=== PATIENT | female | born 1990 | race Caucasian/White ===

== ENCOUNTER 2020-12-18 09:16 | Outpatient (REF) | payer OTHER, SELFPAY ==
[2020-12-18 10:00] LABS: MANUAL DIFF FLAG NO
[2020-12-18 10:11] LABS: Basophils Percent Auto 0.4 % (0-2); Eosinophils Absolute Auto 0.1 X10*3/uL (0.0-0.4); Eosinophils Percent Auto 1.9 % (0-4); Hematocrit 42.9 % (37-47); Imm Gran Abs Auto 0.03 X10*3/uL (0.00-0.03); Imm Gran Pct Auto 0.4 % (0.0-0.4); Immature Retic Fraction 5.1 % (3.0-15.9); Lymphocytes Absolute Auto 1.6 X10*3/uL (1.2-4.9); Lymphocytes Percent Auto 22.4 % (20-40); Mean Corpuscular HGB Conc 32.6 g/dl (31.0-35.0); Mean Corpuscular Hemoglobin 28.2 pg (27.0-33.0); Mean Corpuscular Volume 86.3 fL (80-98); Mean Platelet Volume 9.3 fL (9.4-12.3); Monocytes Absolute Auto 0.5 X10*3/uL (0.1-1.2); Monocytes Percent Auto 6.2 % (2-11); Neutrophils Percent Auto 68.7 % (45-73); Platelet Count 317 X10*3/uL (160-400); Red Blood Count 4.97 X10*6/uL (4.20-5.50); Red Cell Distribution Width 13.9 % (11.0-16.0); Retic HGB Equivalent 31.2 pg (30.0-35.0); Reticulocyte Percent 1.4 % (0.5-1.8); White Blood Count 7.3 X10*3/uL (4.8-10.8)
[2020-12-18 10:37] LABS: Estimated Average Glucose 108 mg/dL; Hemoglobin A1c % 5.4 %
[2020-12-18 10:45] LABS: Alanine Aminotransferase 14 U/L (0-31); Albumin Level 4.6 g/dL (3.5-5.0); Alkaline Phosphatase 102 U/L (39-117); Anion Gap 11 (12-20); Aspartate Amino Transferase 15 U/L (5-31); Bilirubin Total 0.6 mg/dL (0.0-1.0); Blood Urea Nitrogen 9 mg/dL (9-16); Calcium 9.4 mg/dL (8.4-10.2); Carbon Dioxide 26 mmol/L (22-29); Chloride 106 mmol/L (96-108); Cholesterol 190 mg/dL; Estimated Glomerular Filt Rate > 60; Glucose Random 84 mg/dL (60-115); HDL Cholesterol 67 mg/dL; Iron 79 mcg/dL (30-160); LDL Cholesterol Calculated 109 mg/dl; Percent Iron Saturation 22 % (15-50); Potassium 4.1 mmol/L (3.3-5.1); Sodium 139 mmol/L (135-145); Total Iron Binding Capacity 361 mcg/dL (228-428); Total Protein 7.9 g/dL (6.5-8.0); Triglycerides 73 mg/dL; Unsaturated Iron Binding 282 ug/dL
[2020-12-18 11:06] LABS: Folate 19.9 ng/mL (> or = 4.0); Vitamin B12 807 pg/mL (200-900)
[2020-12-18 11:15] LABS: Ferritin 44 ng/mL (10-122)
[2020-12-18 11:17] LABS: Free T4 (Free Thyroxine) 0.92 ng/dL (0.71-1.85); Thyroid Stimulating Hormone 1.18 uIU/mL (0.32-4.0); Vitamin D 25-OH Total 27.8 ng/mL (>30)
[2020-12-21 13:50] LABS: TS Negative Control Passed; TS Panel A 1; TS Panel B 0; TS Positive Control Passed; TSpotTB Negative (SeeBelow)
== END 2020-12-18 09:17 | disposition home or self-care (01) ==
LOC: HO.LAB 09:16
PROVIDERS: PCP Internal Medicine; Visit Provider Internal Medicine
DX: E66.9 Obesity, unspecified (principal); E78.00 Pure hypercholesterolemia, unspecified
CPT/HCPCS: 36415; 80053; 80061; 82306; 82607; 82728; 82746; 83036; 83540; 84439; 84443; 85025; 85045; 86481

== ENCOUNTER 2021-04-01 09:13 | Outpatient (REF) | payer OTHER, SELFPAY ==
[2021-04-01 11:45] LABS: Binax Internal Control QC Valid; Binax Now Covid-19 Ag Negative (Negative)
== END 2021-04-01 09:14 | disposition home or self-care (01) ==
LOC: HO.LAB 09:13
PROVIDERS: Visit Provider Internal Medicine
DX: Z20.822 Contact with and (suspected) exposure to COVID-19 (principal)
CPT/HCPCS: 36415; C9803

== ENCOUNTER 2021-08-14 21:13 | Emergency (ER) | payer OTHER, SELFPAY ==
[2021-08-14 22:14] VITALS: BP 140/88; PULSE 108; RESP 18; TEMP 36.4; O2SAT 98; BMI 35.6
[2021-08-14 23:07] LABS: Influenza A PCR POSITIVE (Negative); Influenza B PCR NEGATIVE (Negative); Resp Syncy Virus RNA Qual PCR NEGATIVE (Negative); SARS COV2 PCR INHOUSE NEGATIVE (Negative)
--- NOTE | 2021-08-14 23:48 | ED_ITS ---
HPI - URI/Sore Throat General Chief Complaint: Upper Respiratory Symptoms Stated Complaint: fever,diarrhea, chills Time Seen by Provider: 08/14/21 23:48 Source: patient Mode of arrival: ambulatory Limitations: no limitations History of Present Illness HPI Narrative: Patient comes emergency room complaining 3 days nasal congestion, cough. Fever at home of 101.2. Complaining of chills. Patient's daughter has the same symptoms. No shortness of breath, no chest pain. COVID test is negative at home. Related Data Home Medications Medication Instructions Recorded Confirmed multivitamin 1 tab PO DAILY 12/17/20 12/17/20 Previous Rx's Medication Instructions Recorded oseltamivir 75 mg capsule (Tamiflu) 75 mg PO BID 5 Days #10 cap 08/14/21 Allergies Allergy/AdvReac Type Severity Reaction Status Date / Time No Known Allergies Allergy Verified 08/14/21 22:13 Review of Systems Review of Systems: Constitutional : No Weight loss, No Fever, No Chills, No Night Sweats, No Fatigue, No Malaise ENT/Mouth : No Hearing loss, No Ear Pain, No Nasal Congestion, No Sinus Pain, No Hoarseness, mild sore throat, No Rhinorrhea, No Swallowing Difficulty Eyes: No Eye Pain, No Swelling, No Redness, No Foreign Body, No Discharge, No Vision Changes Cardiovascular : No Chest Pain, No SOB, No Dyspnea on Exertion, No Orthopnea, No Edema, No Palpitations Respiratory : Cough, sore throat Gastrointestinal : No Nausea, No Vomiting, No Diarrhea, No Constipation, No abdominal Pain, No Hematochezia, No Melena Genitourinary : no irregular bleeding, No Dysuria, No Urinary Frequency, No Hematuria, No Urinary Incontinence, No Urgency, No Flank Pain, No Urinary Flow Changes, No Hesitancy Musculoskeletal : No joint pain, No Myalgias, No Joint Swelling Skin : No Skin Lesions, No rash Neuro : No Weakness, No Numbness, No Paresthesias, No Loss of Consciousness, No Dizziness, No Headache Psych : No Anxiety/Panic, No Depression, No SI/HI/AH/VH, No Social Issues, Heme/Lymph: No Bruising, No Bleeding,No Lymphadenopathy Endocrine : No Polyuria, No Polydipsia, No Temperature Intolerance PMFSH Past Medical History Medical History Constipation Generalized anxiety disorder Gestational diabetes Obesity (BMI 30.0-34.9) Vitamin D deficiency Surgical History Bunion of great toe H/O hand surgery H/O tubal ligation [place] teeth removed Family History Family History (Updated 12/17/20 @ 09:50 by Slim Hensley MD) Maternal Grandmother Myocardial infarct Social History Social History (Updated 12/17/20 @ 09:51 by Slim Hensley MD) Housing: House Alcohol intake: never Patient Tobacco Use Status: Never used Tobacco e-Cigarette/Vaping Use: Never Used Second Hand Smoke Exposure: No Advance Directives: No Advance Directives Information Provided: Yes service: No Current occupational status: employed Physical Exam Vital Signs: Vital Signs: Last Vital Signs Temp 97.6 F 08/14/21 22:14 Pulse 108 H 08/14/21 22:14 Resp 18 08/14/21 22:14 BP 140/88 H 08/14/21 22:14 Pulse Ox 98 08/14/21 22:14 BMI result Body Mass Index 35.6 Const: Other: Appearance: Alert. Oriented X3. No acute distress. Well-appearing Eyes: Pupils equal, round and reactive to light. ENT: Pharynx normal. Neck: Normal inspection. Neck supple. No lymph nodes noted. No crepitus CVS: Normal heart rate and rhythm. Pulses normal. Normal S1 and S2 Respiratory: No respiratory distress. Breath sounds normal. No Wheezing. No rales Abdomen: Soft and nontender. No rigidity. No distention. Skin: Skin warm and dry. Normal skin color. Normal skin turgor. Extremities: No lower extremity edema. No Lacerations. No Rash Neuro: Oriented X 3. No motor deficit. No sensory deficit. Moving all extremities. No slurred speech. CN 2 through 12 grossly intact Psych: calm, cooperative, normal affect Course Course Course Narrative: Patient's heart rate in the 90s on physical exam, patient test positive for influenza a as well as her daughter. Patient will be started on Tamiflu MDM - URI/Sore Throat Lab Data Labs: Lab Results 08/14/21 Range/Units 22:19 Influenza Type A (PCR) POSITIVE A (Negative) Influenza Type B (PCR) NEGATIVE (Negative) RSV RNA Qual (PCR) NEGATIVE (Negative) SARS-CoV-2 RNA (RT-PCR) NEGATIVE (Negative) Discharge Plan Discharge Clinical Impression: Influenza A Patient Disposition: Home, Self-Care Instructions: Influenza (ED) Additional Instructions: Please follow-up with your primary care physician tomorrow. If you have any worsening or new symptoms, please return to the emergency room or call 911 Prescriptions: New oseltamivir [Tamiflu] 75 mg capsule 75 mg PO BID 5 Days Qty: 10 0RF No Action multivitamin Tablet 1 tab PO DAILY 0RF
== END 2021-08-15 00:10 | disposition home or self-care (01) ==
PROVIDERS: Emergency Provider Emergency Medicine; PCP Internal Medicine
DX: J10.1 Influenza due to other identified influenza virus with other respiratory manifestations (principal); R50.9 Fever, unspecified; R05.9 Cough, unspecified; Z20.822 Contact with and (suspected) exposure to COVID-19; Z79.899 Other long term (current) drug therapy
CPT/HCPCS: 0241U; 99283

== ENCOUNTER 2022-01-25 03:17 | Emergency (ER) | payer OTHER, SELFPAY ==
[2022-01-25 03:24] VITALS: BP 122/84; PULSE 87; RESP 18; TEMP 36.4; O2SAT 97; BMI 34.5
[2022-01-25 03:48] LABS: Strep A Nucleic Acid Negative (Negative)
[2022-01-25 04:16] LABS: Influenza A PCR NEGATIVE (Negative); Influenza B PCR NEGATIVE (Negative); Resp Syncy Virus RNA Qual PCR NEGATIVE (Negative); SARS COV2 PCR INHOUSE NEGATIVE (Negative)
[2022-01-25 06:10] VITALS: BP 115/78; PULSE 78; RESP 16; TEMP 36.8; O2SAT 99
--- NOTE | 2022-01-25 06:34 | ED.GENADULT ---
HPI - General Adult General Chief complaint: General Medical Stated complaint: sore throat Time Seen by Provider: 01/25/22 06:26 Source: patient Mode of arrival: ambulatory Limitations: no limitations History of Present Illness HPI narrative: Patient comes to the emergency room complaining of sore throat for 4 days. Patient is here chills. No difficulty swallowing, no chest pain or shortness of breath. Related Data Home Medications Medication Instructions Recorded Confirmed multivitamin 1 tab PO DAILY 12/17/20 12/17/20 Previous Rx's Medication Instructions Recorded oseltamivir 75 mg capsule (Tamiflu) 75 mg PO BID 5 days #10 caps 08/14/21 Allergies Allergy/AdvReac Type Severity Reaction Status Date / Time No Known Allergies Allergy Verified 08/14/21 22:13 Review of Systems Review of Systems: Constitutional : No Weight loss, No Fever, No Chills, No Night Sweats, No Fatigue, No Malaise ENT/Mouth : No Hearing loss, No Ear Pain, No Nasal Congestion, No Sinus Pain, No Hoarseness, complaining of sore throat, No Rhinorrhea, No Swallowing Difficulty Eyes: No Eye Pain, No Swelling, No Redness, No Foreign Body, No Discharge, No Vision Changes Cardiovascular : No Chest Pain, No SOB, No Dyspnea on Exertion, No Orthopnea, No Edema, No Palpitations Respiratory : No Cough, No Sputum, No Wheezing, No Smoke Exposure, No Dyspnea Gastrointestinal : No Nausea, No Vomiting, No Diarrhea, No Constipation, No abdominal Pain, No Hematochezia, No Melena Genitourinary : no irregular bleeding, No Dysuria, No Urinary Frequency, No Hematuria, No Urinary Incontinence, No Urgency, No Flank Pain, No Urinary Flow Changes, No Hesitancy Musculoskeletal : No joint pain, No Myalgias, No Joint Swelling Skin : No Skin Lesions, No rash Neuro : No Weakness, No Numbness, No Paresthesias, No Loss of Consciousness, No Dizziness, No Headache Psych : No Anxiety/Panic, No Depression, No SI/HI/AH/VH, No Social Issues, Heme/Lymph: No Bruising, No Bleeding,No Lymphadenopathy Endocrine : No Polyuria, No Polydipsia, No Temperature Intolerance PMFSH Past Medical History Medical History Constipation Generalized anxiety disorder Gestational diabetes Obesity (BMI 30.0-34.9) Vitamin D deficiency Surgical History Bunion of great toe H/O hand surgery H/O tubal ligation [place] teeth removed Family History Family History (Updated 12/17/20 @ 09:50 by Slim Hensley MD) Maternal Grandmother Myocardial infarct Social History Social History (Updated 12/17/20 @ 09:51 by Slim Hensley MD) Housing: House Alcohol intake: never Patient Tobacco Use Status: Never used Tobacco e-Cigarette/Vaping Use: Never Used Second Hand Smoke Exposure: No Advance Directives: No Advance Directives Information Provided: No service: No Current occupational status: employed Physical Exam ED Vital Signs: Vital Signs - 24 hr 01/25/22 03:24 01/25/22 06:10 Temperature 97.5 F 98.2 F Pulse Rate 87 78 Respiratory Rate 18 16 Blood Pressure 122/84 115/78 Pulse Oximetry 97 99 Oxygen Delivery Method Room Air Room Air BMI result Body Mass Index 34.5 Const Other: Appearance: Alert. Oriented X3. No acute distress. Well appearing Eyes: Pupils equal, round and reactive to light. ENT: Pharynx normal. Exit, no vesicles, no abscess is visualized Neck: Normal inspection. Neck supple. No lymph nodes noted. No crepitus CVS: Normal heart rate and rhythm. Pulses normal. Normal S1 and S2 Respiratory: No respiratory distress. Breath sounds normal. No Wheezing. No rales Abdomen: Soft and nontender. No rigidity. No distention. Skin: Skin warm and dry. Normal skin color. Normal skin turgor. Extremities: No lower extremity edema. No Lacerations. No Rash Neuro: Oriented X 3. No motor deficit. No sensory deficit. Moving all extremities. No slurred speech. CN 2 through 12 grossly intact Psych: calm, cooperative, normal affect Course Course Course Narrative: Patient tested negative for COVID and for strep. Patient likely having viral pharyngitis. Patient was given a dose of p.o. Decadron and viscous lidocaine for comfort. Medical Decision Making Lab Data Labs: Lab Results 01/25/22 01/25/22 Range/Units 03:32 03:32 Influenza Type A (PCR) NEGATIVE (Negative) Influenza Type B (PCR) NEGATIVE (Negative) RSV RNA Qual (PCR) NEGATIVE (Negative) SARS-CoV-2 RNA (RT-PCR) NEGATIVE (Negative) S. pyogenes GrpA ASHLEY Negative (Negative) Discharge Plan Discharge Clinical Impression: Acute viral pharyngitis Patient Disposition: Home, Self-Care Instructions: Pharyngitis (ED) Additional Instructions: Please follow-up with your primary care physician tomorrow. If you have any worsening or new symptoms, please return to the emergency room or call 911 Prescriptions: No Action oseltamivir [Tamiflu] 75 mg capsule 75 mg PO BID 5 Days Qty: 10 0RF multivitamin Tablet 1 tab PO DAILY
[2022-01-25] MEDS: Lidocaine HCl Viscous 2 % 15 ML SOLUTION MUCOUS MEM (06:52)
[2022-01-25] MEDS: dexAMETHasone 6 MG TABLET PO (06:52)
== END 2022-01-25 06:58 | disposition home or self-care (01) ==
PROVIDERS: Emergency Provider Emergency Medicine; PCP Internal Medicine
DX: J02.9 Acute pharyngitis, unspecified (principal); Z20.822 Contact with and (suspected) exposure to COVID-19
CPT/HCPCS: 0241U; 87651; 99283; J8540

== ENCOUNTER 2022-04-09 11:14 | Outpatient (REF) | payer OTHER, SELFPAY ==
[2022-04-11 15:49] LABS: TS Negative Control Passed; TS Panel A 0; TS Panel B 0; TS Positive Control Passed; TSpotTB Negative (Negative)
== END 2022-04-09 11:15 | disposition home or self-care (01) ==
LOC: HO.LAB 11:14
PROVIDERS: PCP Internal Medicine; Visit Provider Internal Medicine
DX: Z11.1 Encounter for screening for respiratory tuberculosis (principal)
CPT/HCPCS: 36415; 86481

== ENCOUNTER 2022-10-31 15:11 | Outpatient (AMB) | payer OTHER, SELFPAY ==
[2022-10-31 15:17] VITALS: BP 130/74; PULSE 78; O2SAT 98; BMI 38.0
--- NOTE | 2022-10-31 15:17 | A.OFFPC_ITS ---
Vital Signs 10/31/22 15:17 Height 5 ft 2 in Weight 208 lb BMI 38.0 BP 130/74 Blood Pressure Location Lt brachial Position Sitting Pulse 78 Pulse Source Pulse Oximeter Temp Source Skin Pulse Oximetry (%) 98 Oxygen Delivery Method Room Air Intake Visit Reasons: Health issues Unit Educator Required: No Allergies No Known Allergies Allergy (Verified 10/31/22 15:18) Tobacco use date assessed: 10/31/22 Dental Screening Dental Screen Date: 10/31/22 Did you have a dental visit in the last 12 months?: Yes Did you have a dental problem in the last 6 months where you did not have access to dental care?: No Was dental information given to patient?: Patient has dentist HPI Health issues HPI Details 32-year-old obese female with a history of gestational diabetes coming in for follow-up. Last seen in March 2022 for physical. August rash on the medial bilateral arm area but this is better presently the patient does not have any rash and so discussed about a thinks that can have a problem. Skin reactions like allergy, skin infections,. discussed about hidradenitis. Concern that with her gaining a lot of weight that this may become a complication. Patient has a history of gestational diabetes so discussed length really about trying to lose the weight this patient did increase in weight . Patient does have 3 children young and so had this has kept her really busy. . [facility] Medical History Constipation Generalized anxiety disorder Gestational diabetes Obesity (BMI 30.0-34.9) Vitamin D deficiency Surgical History Bunion of great toe H/O hand surgery H/O tubal ligation [place] teeth removed Family History (Updated 12/17/20 @ 09:50 by Slim Hensley MD) Maternal Grandmother Myocardial infarct Social History (Updated 04/09/22 @ 10:48 by Slim Hensley MD) Housing: House Alcohol intake: never Patient Tobacco Use Status: Never used Tobacco e-Cigarette/Vaping Use: Never Used Second Hand Smoke Exposure: No service: No Current occupational status: employed Cognitive needs: No Hearing needs: No Vision needs: No Questionnaire PHQ-9 Over the last 2 weeks, how often have you been bothered by any of the following problems? 1. Little interest or pleasure in doing things: not at all 2. Feeling down, depressed, or hopeless: not at all 3. Trouble falling or staying asleep, or sleeping too much: not at all 4. Feeling tired or having little energy: not at all 5. Poor appetite or overeating: not at all 6. Feeling bad about yourself - or that you are a failure or have let yourself or your family down: not at all 7. Trouble concentrating on things, such as reading the newspaper or watching television: not at all 8. Moving or speaking so slowly that other people could have noticed. Or the opposite - being so fidgety or restless that you have been moving around a lot more than usual: not at all 9. Thoughts that you would be better off or of hurting yourself in some way: not at all Total score: 0 Source: Developed by Drs. Tuan Vargas, Rosalie Kenyon, Bla Bauer and colleagues, with an educational idalia from [employer]. Thrive Questionnaire Date Thrive assessed: 04/09/22 I am a: Patient What is your living situation today?: I have a steady place to live Within the past 12 months, did the food you bought not last and you didn't have the money to get more?: Never true Within the past 12 months, did you worry whether your food would run out before you got money to buy more?: Never true AUDIT C Alcohol Use Questionnaire (AUDIT-C) 1. How often do you have a drink containing alcohol?: Monthly or less 2. How many drinks containing alcohol do you have on a typical day when you are drinking?: 1 or 2 3. How often do you have six or more drinks on one occasion?: Never Total Score: 1 RUBY-7 AMB Questionnaire RUBY-7 Date RUBY - 7 assessed: 10/31/22 Feeling nervous, anxious, or on edge: 0 = Not at all Not being able to stop or control worryin = Not at all Worrying too much about different things: 0 = Not at all Trouble relaxin = Not at all Being so restless that it is hard to sit still: 0 = Not at all Becoming easily annoyed or irritable: 0 = Not at all Feeling afraid as if something awful might happen: 0 = Not at all Total RUBY-7 score (0-4 normal; 5-9 mild; 10-14 moderate; 15-21 severe): 0 Source: Developed by Drs. Tuan Vargas, Rosalie Kenyon, Bal Bauer and colleagues, with an educational idalia from [employer]. RUBY-7 Assessment Billing RUBY-7 Assessment Tool: RUBY-7 Assessment 09472 Physical exam (Primary Care) Vital Signs: Last Vital Signs Pulse 78 10/31/22 15:17 BP 130/74 10/31/22 15:17 Pulse Ox 98 10/31/22 15:17 Oxygen Delivery Method Room Air 10/31/22 15:17 BMI result Body Mass Index 38.0 Tobacco/Smoking Status: Tobacco use Status Tobacco use date assessed 10/31/22 10/31/22 15:18 Patient Tobacco Use Status Never used Tobacco 10/31/22 15:18 Tobacco use type 12/17/20 10:18 e-Cigarette/Vaping Use Never Used 10/31/22 15:18 PHQ-9: PHQ-9 Score PHQ-9: Total score 0 10/31/22 15:24 Thrive Assessment: Date of Thrive Assessment Date Thrive assessed 04/09/22 10/31/22 15:18 Const General: alert; No acute distress Eyes Conjunctivae: conjunctivae normal Resp Auscultation: clear to auscultation bilaterally Cardio Rate: regular rate Rhythm: regular rhythm GI Inspection: Yes normal to inspection Extrem General: Yes normal to inspection and No edema Assessment and Plan Assessment & Plan (1) Obesity (BMI 30.0-34.9): Code(s): E66.9 - Obesity, unspecified Plan: Diet and exercise. Advised to have time for her health with healthy eating and exercise. (2) History of gestational diabetes: Code(s): Z86.32 - Personal history of gestational diabetes Plan: Decrease the amount of carbohydrate intake, pasta, bread, rice and potatoes are all sugar and that is aside from all the sweet stuff, remember that fruits are good but they are Sweet also. (3) Actinic reaction of skin: Code(s): L56.8 - Other specified acute skin changes due to ultraviolet radiation Plan: Discussed about possibilities of skin reaction as well as hydradenitis suppurativa which can be a complication of weight. Coding Level of Care Code Est Pt Level 4 (88015) Diagnoses Obesity (BMI 30.0-34.9) E66.9 History of gestational diabetes Z86.32 Actinic reaction of skin L56.8 Additional Codes RUBY-7 Assessment Billing - RUBY-7 Assessment Tool: RUBY-7 Assessment 80407 ([id number]) PHQ-9 - 50151 - PHQ-9 Billing: Y ([id number])
== END 2022-10-31 16:06 | disposition home or self-care (01) ==
PROVIDERS: PCP Internal Medicine; Visit Provider Internal Medicine
DX: E66.9 Obesity, unspecified (principal); Z86.32 Personal history of gestational diabetes; L56.8 Other specified acute skin changes due to ultraviolet radiation; Z68.38 Body mass index [BMI] 38.0-38.9, adult
CPT/HCPCS: 99214

== ENCOUNTER 2023-02-11 12:42 | Outpatient (AMB) | payer OTHER, SELFPAY ==
[2023-02-11 12:47] VITALS: BP 122/74; PULSE 84; O2SAT 99; BMI 37.4
--- NOTE | 2023-02-11 12:47 | A.OFFPC_ITS ---
Vital Signs 02/11/23 12:47 Height 5 ft 2 in Weight 204 lb 4 oz BMI 37.4 BP 122/74 Blood Pressure Location Lt brachial Position Sitting Pulse 84 Pulse Source Pulse Oximeter Temp Source Skin Pulse Oximetry (%) 99 Oxygen Delivery Method Room Air Intake Visit Reasons: obesity+ NEEDS FRANCY Bland MD INTERPRET. Director Information Security Required: No Allergies No Known Allergies Allergy (Verified 02/11/23 12:47) Medication List - Last Reconciled 02/11/23 by Slim Hensley MD phentermine 37.5 mg PO DAILY Tobacco use date assessed: 02/11/23 Dental Screening Dental Screen Date: 02/11/23 Did you have a dental visit in the last 12 months?: No Did you have a dental problem in the last 6 months where you did not have access to dental care?: No HPI obesity+ NEEDS FRANCY Bland MD INTERPRET. HPI Details 32-year-old obese female last seen in [facility] 2022 with a history of gestational diabetes coming in for follow-up. doing good and taking care of kids more active' has hard time losing weight and was asking some help. Patient was asking about peptides by injection but discussed with the patient that I would do not have any experience on this. As for PHQ-9 this was done patient is negative for any anxiety and depression. [facility] Medical History (Updated 02/11/23 @ 13:21 by Slim Hensley MD) Gestational diabetes Generalized anxiety disorder Obesity (BMI 30.0-34.9) Constipation Vitamin D deficiency Surgical History H/O tubal ligation [place] teeth removed H/O hand surgery Bunion of great toe Family History (Updated 12/17/20 @ 09:50 by Slim Hensley MD) Maternal Grandmother Myocardial infarct (Updated 04/09/22 @ 10:48 by Slim Hensley MD) Housing: House Alcohol intake: never Patient Tobacco Use Status: Never used Tobacco e-Cigarette/Vaping Use: Never Used Second Hand Smoke Exposure: No service: No Current occupational status: employed Cognitive needs: No Hearing needs: No Vision needs: No Questionnaire PHQ-9 Over the last 2 weeks, how often have you been bothered by any of the following problems? 1. Little interest or pleasure in doing things: not at all 2. Feeling down, depressed, or hopeless: not at all 3. Trouble falling or staying asleep, or sleeping too much: not at all 4. Feeling tired or having little energy: several days 5. Poor appetite or overeating: several days 6. Feeling bad about yourself - or that you are a failure or have let yourself or your family down: not at all 7. Trouble concentrating on things, such as reading the newspaper or watching television: not at all 8. Moving or speaking so slowly that other people could have noticed. Or the opposite - being so fidgety or restless that you have been moving around a lot more than usual: not at all 9. Thoughts that you would be better off or of hurting yourself in some way: not at all Total score: 2 Depression Screening Interpretation: Negative Depression Screening Done: Yes 40184 - PHQ-9 Billing: Yes Source: Developed by Drs. Tuan Vargas, Rosalie Kenyon, Bal Bauer and colleagues, with an educational idalia from [employer]. Thrive Questionnaire Date Thrive assessed: 04/09/22 AUDIT C Alcohol Use Questionnaire (AUDIT-C) 1. How often do you have a drink containing alcohol?: Monthly or less 2. How many drinks containing alcohol do you have on a typical day when you are drinking?: 1 or 2 3. How often do you have six or more drinks on one occasion?: Never Total Score: 1 RUBY-7 AMB Questionnaire RUBY-7 Date RUBY - 7 assessed: 10/31/22 Source: Developed by Drs. Tuan Vargas, Rosalie Kenyon, Bal Bauer and colleagues, with an educational idalia from [employer]. Physical exam (Primary Care) Vital Signs: Last Vital Signs Pulse 84 02/11/23 12:47 BP 122/74 02/11/23 12:47 Pulse Ox 99 02/11/23 12:47 Oxygen Delivery Method Room Air 02/11/23 12:47 BMI result Body Mass Index 37.4 Tobacco/Smoking Status: Tobacco use Status Tobacco use date assessed 02/11/23 02/11/23 12:48 Patient Tobacco Use Status Never used Tobacco 02/11/23 12:48 Tobacco use type 12/17/20 10:18 e-Cigarette/Vaping Use Never Used 02/11/23 12:48 Depression Screening Interpretation: Negative Thrive Assessment: Date of Thrive Assessment Date Thrive assessed 04/09/22 02/11/23 12:48 Const General: alert; No acute distress Eyes Conjunctivae: conjunctivae normal Resp Auscultation: clear to auscultation bilaterally Cardio Rate: regular rate Rhythm: regular rhythm GI Inspection: Yes normal to inspection Extrem General: Yes normal to inspection and No edema Assessment and Plan Assessment & Plan (1) Obesity (BMI 30.0-34.9): Code(s): E66.9 - Obesity, unspecified Plan: Discussion about diet and exercise and starting on medication(limitation of jumped starting weight loss for 3 months only). Discussed that this medication can cause palpitations and blood pressure problem. Advised to monitor will follow-up in 1 month. Medications: New phentermine must administer 30 minutes before or 1-2 hours after breakfast 37.5 mg PO DAILY 30 caps 0RF E66.9 - Obesity, unspecified Coding Level of Care Code Est Pt Level 3 (25992) Diagnoses Obesity (BMI 30.0-34.9) E66.9
== END 2023-02-11 13:49 | disposition home or self-care (01) ==
PROVIDERS: PCP Internal Medicine; Visit Provider Internal Medicine
DX: E66.9 Obesity, unspecified (principal); Z68.37 Body mass index [BMI] 37.0-37.9, adult
CPT/HCPCS: 99213

== ENCOUNTER 2023-04-13 15:06 | Outpatient (AMB) | payer OTHER, SELFPAY ==
--- NOTE | 2023-04-13 15:19 | AM.OFFVISNUR ---
Intake Intake Visit Reasons: TB shot Allergies No Known Allergies Allergy (Verified 02/11/23 12:47) Office Meds tuberculin PPD 5 tub. unit/0.1 mL intradermal injection solution Performing Provider: Slim Hensley MD [facility] Administered by: Leidy Butler RN on 04/13/23 15:19 Dose Route Admin Location Dispensed Lot Number Expiration Date NDC Assistant Research Scientist 0.1 mL intradermal left forearm 0.1 mL [id number] 03/22/26 98682-102-64 [employer] Coding Assessment & Plan Assessment & Plan Orders: Orders AMB PPD Planted Today Z11.1 - Encounter for screening for respiratory tuberculosis
== END 2023-04-13 15:20 | disposition home or self-care (01) ==
PROVIDERS: PCP Internal Medicine; Visit Provider Internal Medicine
DX: Z11.1 Encounter for screening for respiratory tuberculosis (principal)
CPT/HCPCS: 86580

== ENCOUNTER 2023-04-16 09:55 | Outpatient (AMB) | payer OTHER, SELFPAY ==
[2023-04-16 09:58] VITALS: BP 112/70; PULSE 87; O2SAT 100; BMI 36.6
--- NOTE | 2023-04-16 09:58 | A.OFFPC_ITS ---
Vital Signs 04/16/23 09:58 Height 5 ft 2 in Weight 200 lb BMI 36.6 BP 112/70 Blood Pressure Location Lt brachial Position Sitting Pulse 87 Pulse Source Pulse Oximeter Pulse Oximetry (%) 100 Oxygen Delivery Method Room Air Intake Visit Reasons: Annual Exam Management Development Specialist Required: No Allergies phentermine Adverse Reaction (Intermediate, Unverified 04/16/23 10:26) Headache Medication List - Last Reconciled 04/16/23 by Slim Hensley MD Tobacco use date assessed: 04/16/23 Dental Screening Dental Screen Date: 04/16/23 Did you have a dental visit in the last 12 months?: No Did you have a dental problem in the last 6 months where you did not have access to dental care?: No Was dental information given to patient?: Patient has dentist HPI Annual Exam HPI Details 32-year-old obese female with a history of anemia coming in for physical exam last seen in January 2023. stopped phentermie due to [facility] Medical History (Updated 02/11/23 @ 13:21 by Slim Hensley MD) Gestational diabetes Generalized anxiety disorder Obesity (BMI 30.0-34.9) Constipation Vitamin D deficiency Surgical History H/O tubal ligation [place] teeth removed H/O hand surgery Bunion of great toe Family History (Updated 12/17/20 @ 09:50 by Slim Hensley MD) Maternal Grandmother Myocardial infarct Social History (Updated 04/16/23 @ 10:28 by Slim Hensley MD) Housing: House Alcohol intake: current Comment: 2-3 x a year 3 glasses Patient Tobacco Use Status: Never used Tobacco e-Cigarette/Vaping Use: Never Used Second Hand Smoke Exposure: No service: No Current occupational status: employed Cognitive needs: No Hearing needs: No Vision needs: No Questionnaire PHQ-9 Over the last 2 weeks, how often have you been bothered by any of the following problems? 1. Little interest or pleasure in doing things: not at all 2. Feeling down, depressed, or hopeless: not at all 3. Trouble falling or staying asleep, or sleeping too much: not at all 4. Feeling tired or having little energy: not at all 5. Poor appetite or overeating: not at all 6. Feeling bad about yourself - or that you are a failure or have let yourself or your family down: not at all 7. Trouble concentrating on things, such as reading the newspaper or watching television: not at all 8. Moving or speaking so slowly that other people could have noticed. Or the opposite - being so fidgety or restless that you have been moving around a lot more than usual: not at all 9. Thoughts that you would be better off or of hurting yourself in some way: not at all Total score: 0 Depression Screening Interpretation: Negative Depression Screening Done: Yes Source: Developed by Drs. Tuan Vargas, Rosalie Kenyon, Bal Bauer and colleagues, with an educational idalia from [email or web address]. Thrive Questionnaire Date Thrive assessed: 04/16/23 I am a: Patient What is your living situation today?: I have a steady place to live Within the past 12 months, did the food you bought not last and you didn't have the money to get more?: Never true Within the past 12 months, did you worry whether your food would run out before you got money to buy more?: Never true Do you have trouble paying for medicines?: No Do you have trouble getting transportation to medical appointments?: No Do you have trouble paying your heating and electricity bill?: No Do you have trouble taking care of your child, family member or friend?: No Do you have trouble with day-to-day activities such as bathing, preparing meals, shopping, managing finances, etc.?: No Are you currently unemployed and looking for a job?: No Are you interested in more education?: No Please select the resources that you would like help with: None THRIVE Score: 0 AUDIT C Alcohol Use Questionnaire (AUDIT-C) 1. How often do you have a drink containing alcohol?: Monthly or less 2. How many drinks containing alcohol do you have on a typical day when you are drinking?: 1 or 2 3. How often do you have six or more drinks on one occasion?: Never Total Score: 1 RUBY-7 AMB Questionnaire RUBY-7 Date RUBY - 7 assessed: 04/16/23 Feeling nervous, anxious, or on edge: 0 = Not at all Not being able to stop or control worryin = Not at all Worrying too much about different things: 0 = Not at all Trouble relaxin = Not at all Being so restless that it is hard to sit still: 0 = Not at all Becoming easily annoyed or irritable: 0 = Not at all Feeling afraid as if something awful might happen: 0 = Not at all Total RUBY-7 score (0-4 normal; 5-9 mild; 10-14 moderate; 15-21 severe): 0 Source: Developed by Drs. Tuan Vargas, Rosalie Kenyon, Bal Bauer and colleagues, with an educational idalia from [email or web address]. Review of Systems Const Denies poor appetite and Denies weakness Eyes Denies no additional complaints ENT Reports Normal hearing present, Denies dizziness, Denies nasal congestion, Denies tinnitus and Denies sore throat Card Denies chest pain, Denies syncope, Denies rapid heart rate and Denies dyspnea Resp Denies cough and Denies dyspnea GI Denies change in stool character, Reports constipation, Denies diarrhea, Denies nausea and Denies vomiting Denies urinary frequency, Denies difficulty voiding and Denies dysuria Neuro Reports Normal hearing present, Denies confusion, Denies dizziness, Denies syncope and Denies weakness Psych Denies confusion Physical exam (Primary Care) Vital Signs: Last Vital Signs Pulse 87 04/16/23 09:58 BP 112/70 04/16/23 09:58 Pulse Ox 100 04/16/23 09:58 Oxygen Delivery Method Room Air 04/16/23 09:58 BMI result Body Mass Index 36.6 Tobacco/Smoking Status: Tobacco use Status Tobacco use date assessed 04/16/23 04/16/23 09:59 Patient Tobacco Use Status Never used Tobacco 04/16/23 10:28 Tobacco use type 12/17/20 10:18 e-Cigarette/Vaping Use Never Used 04/16/23 10:28 PHQ-9: PHQ-9 Score PHQ-9: Total score 0 04/16/23 10:24 Depression Screening Interpretation: Negative Thrive Assessment: Date of Thrive Assessment Date Thrive assessed 04/16/23 04/16/23 09:59 Const General: alert and awake; No confusion Orientation/consciousness: No confusion HENMT Head: Yes normocephalic Ears: external ears normal and TM's normal bilaterally Face and sinus: Yes normal facial exam Mouth: moist mucous membranes Throat: Yes tonsils normal Eyes Conjunctivae: conjunctivae normal Pupils: Equal, round and reactive pupils present and Pupil accommodation reflex normal Direct Ophthalmoscopy: normal light reflex Neck Neck: No lymphadenopathy Thyroid: Thyroid normal Chest Chest palpation & inspection: normal inspection of the chest Resp Effort & Inspection: normal respiratory effort and no audible wheezes Auscultation: clear to auscultation bilaterally, no crackles, no wheezes and lung sounds not diminished Cardio Rate: regular rate Rhythm: regular rhythm Peripheral pulses: radial pulses present and dorsalis pedis present GI Palpation (GI): no masses Auscultation: normal bowel sounds and normoactive bowel sounds Rectal Exam - Female: deferred Skin General skin exam: no rashes or lesions noted Rashes: no rashes Neuro General: deep tendon reflexes 2+ bilaterally and No confusion Cranial nerves: Yes Equal, round and reactive pupils present, Yes Midline tongue present, Yes Normal hearing present and Yes Ability to bilaterally elevate shoulders present Cognition (Neuro): normal cognition Gait exam (Neuro): Normal gait present Motor exam (neuro): 5/5 motor strength present throughout Deep tendon reflexes (DTR's): Right brachioradialis reflex intensity grade: 2+, Left brachioradialis reflex intensity grade: 2+, Right patellar reflex intensity grade: 2+ and Left patellar reflex intensity grade: 2+ Extrem General: No edema Results AMB PPD Test AMB PPD Test Negative Last Edit by Leidy Butler RN on 04/16/23 10:46 Assessment and Plan Assessment & Plan (1) Annual physical exam: Code(s): Z00.00 - Encounter for general adult medical examination without abnormal findings (2) Obesity (BMI 30.0-34.9): Code(s): E66.9 - Obesity, unspecified Plan: Diet and exercise Orders: Orders AMB PPD Reading Today Z11.1 - Encounter for screening for respiratory tuberculosis Coding Level of Care Code Est Pt Prev Care 18-39y(82130) Diagnoses Annual physical exam Z00.00 Obesity (BMI 30.0-34.9) E66.9
== END 2023-04-16 10:41 | disposition home or self-care (01) ==
PROVIDERS: Visit Provider Internal Medicine
DX: Z00.00 Encounter for general adult medical examination without abnormal findings (principal); E66.9 Obesity, unspecified; Z68.36 Body mass index [BMI] 36.0-36.9, adult
CPT/HCPCS: 99395

== ENCOUNTER 2024-01-05 12:29 | Outpatient (REF) | payer OTHER, SELFPAY ==
[2024-01-05 17:47] LABS: Influenza A PCR NEGATIVE (Negative); Influenza B PCR NEGATIVE (Negative); Resp Syncy Virus RNA Qual PCR NEGATIVE (Negative); SARS COV2 PCR INHOUSE NEGATIVE (Negative)
== END 2024-01-05 12:30 | disposition home or self-care (01) ==
LOC: HO.LAB 12:29
PROVIDERS: Physician Assistant; PCP Internal Medicine
DX: J06.9 Acute upper respiratory infection, unspecified (principal)
CPT/HCPCS: 0241U; 87880; 99212

== ENCOUNTER 2024-01-05 12:29 | Outpatient (AMB) | payer OTHER, SELFPAY ==
--- NOTE | 2024-01-05 13:01 | MHC.OFFWIV ---
Intake Vital Signs 01/05/24 13:02 Height 5 ft 2 in Weight 206 lb BMI 37.7 BP 112/74 Blood Pressure Location Rt brachial Position Sitting Pulse 80 Pulse Source Pulse Oximeter Temp 98.6 F Temp Source Oral Pulse Oximetry (%) 99 Oxygen Delivery Method Room Air Intake Visit Reasons: EP cough, diarrhea, chills Intake Note: Patient here for cough, diarrhea, chills, sore throat, headache which started Thursday night. Patient Tobacco Use Status: Never used Tobacco Allergies phentermine Adverse Reaction (Intermediate, Unverified 01/05/24 13:03) Headache Do you need a note to return to daycare/school/sports/work: Yes HPI HPI Comments History of Present Illness Details Pt is a 33 yo F complaining of 3 days of cough, body aches, chills, sore throat, headaches and a reduced appetite. She denies fevers, shortness of breath or a history of asthma. She states her daughter had strep throat 10 days ago and was treated and feels better. Her other daughter is also sick for 3 days with similar symptoms to the patient. She has not tried OTC meds for her symptoms. [facility] Medical History (Updated 01/05/24 @ 13:45 by Pauline Cooley PA-C) Gestational diabetes Generalized anxiety disorder Obesity (BMI 30.0-34.9) Constipation Vitamin D deficiency Surgical History H/O tubal ligation [place] teeth removed H/O hand surgery Bunion of great toe Family History (Updated 12/17/20 @ 09:50 by Slim Hensley MD) Maternal Grandmother Myocardial infarct Social History (Updated 04/16/23 @ 10:28 by Slim Hensley MD) Housing: House Alcohol intake: current Comment: 2-3 x a year 3 glasses Patient Tobacco Use Status: Never used Tobacco e-Cigarette/Vaping Use: Never Used Second Hand Smoke Exposure: No service: No Current occupational status: employed Cognitive needs: No Hearing needs: No Vision needs: No Review of Systems Const All systems reviewed & are unremarkable except as noted in HPI and below Physical Exam Vital Signs: Last Vital Signs Temp 98.6 F 01/05/24 13:02 Pulse 80 01/05/24 13:02 BP 112/74 01/05/24 13:02 Pulse Ox 99 01/05/24 13:02 Oxygen Delivery Method Room Air 01/05/24 13:02 BMI result Body Mass Index 37.7 Const General: cooperative, healthy appearing, comfortable and no acute distress Orientation/consciousness: patient oriented x3 Limitations: no limitations HEENT Head: Yes normal to inspection Ears: hearing grossly normal bilaterally, external ears normal and TM's normal bilaterally General nose exam: Normal external nose present, Normal nares present and No nasal discharge present Face and sinus: Yes normal facial exam and Yes sinuses nontender Mouth: Normal oral and palatal mucosa present and moist mucous membranes Throat: Yes tonsils normal, Yes uvula midline and Yes posterior oropharynx abnormal (Erythema, NO exudates) Eyes General: appearance normal, both eyes and all related structures Neck Neck: Yes normal visual inspection Resp Effort & Inspection: normal respiratory effort, able to speak in complete sentences, no respiratory distress, not tachypneic, no tripod positioning and no use of accessory muscles Skin General skin exam: no rashes or lesions noted Neuro General: patient oriented x3 Extrem General: Yes normal to inspection and Yes no clubbing, cyanosis or edema Results AMB Rapid Strep AMB Rapid Strep Negative Last Edit by VIRGIL Mi on 01/05/24 13:35 Assessment & Plan Assessment & Plan (1) Upper respiratory tract infection: Code(s): J06.9 - Acute upper respiratory infection, unspecified Qualifiers: URI type: unspecified URI Qualified Code(s): J06.9 - Acute upper respiratory infection, unspecified Plan: VSS, pt well appearing, likely viral illness, Sent flu, covid and rsv. Rapid strep negative in office, no exudates on exam. Plan see above Orders: Orders SARS-CoV2/FLU/RSV Today J06.9 - Acute upper respiratory infection, unspecified AMB Rapid Strep Screen Today Z13.9 - Encounter for screening, unspecified Coding Level of Care Code Est Pt Level 3 (39310) Diagnoses Upper respiratory tract infection, unspecified type J06.9 URI type: unspecified URI
[2024-01-05 13:02] VITALS: BP 112/74; PULSE 80; TEMP 37; O2SAT 99; BMI 37.7
== END 2024-01-05 13:41 | disposition home or self-care (01) ==
PROVIDERS: PCP Internal Medicine; Visit Provider Physician Assistant
DX: Z13.9 Encounter for screening, unspecified (principal); J06.9 Acute upper respiratory infection, unspecified

== ENCOUNTER → 2024-01-11 16:05 | Outpatient (BNVA) | payer OTHER, SELFPAY | PROVIDERS: PCP Internal Medicine; Visit Provider Physician Assistant | DX: J22 Unspecified acute lower respiratory infection (principal); R21 Rash and other nonspecific skin eruption | CPT/HCPCS: 99212 ==

== ENCOUNTER → 2024-01-11 16:05 | Outpatient (AMB) | payer OTHER, SELFPAY ==
--- NOTE | 2024-01-11 16:15 | AM.OFFWIN_ITS ---
Intake Vital Signs 01/11/24 16:16 Height 5 ft 2 in Weight 206 lb BMI 37.7 BP 126/82 Blood Pressure Location Lt brachial Position Sitting Pulse 79 Pulse Source Pulse Oximeter Pulse Oximetry (%) 98 Oxygen Delivery Method Room Air Intake Visit Reasons: EP-rt arm rash, cough, chest congestion, sob Intake Note: Patient here for rash on right arm. she also mentioned that she was recently diagnosed w/pneumonia. Patient Tobacco Use Status: Never used Tobacco Allergies phentermine Adverse Reaction (Intermediate, Unverified 01/11/24 16:16) Headache Do you need a note to return to daycare/school/sports/work: No HPI HPI Comments History of Present Illness Details Patient is a 33-year-old female with 2 issues today. Her 1st complaint is a rash on her right forearm that has been there for about 6 days, she states it is getting worse and it is itchy and red. She denies there being any bumps that are oozing any liquid or it being warm. Her 2nd complaint is that she is continuing to have a cough and shortness of breath. She was evaluated here last week tested negative for flu COVID and RSV. She states the next day she got worse so she went to the emergency department where they diagnosed her with pneumonia. She states she has been taking amoxicillin since then and her last dose is tomorrow. She tells me that her shortness of breath is getting worse and she can hear herself wheezing now. She denies any fevers [facility] Medical History (Updated 01/11/24 @ 16:36 by Pauline Cooley PA-C) Gestational diabetes Generalized anxiety disorder Obesity (BMI 30.0-34.9) Constipation Vitamin D deficiency Surgical History H/O tubal ligation [place] teeth removed H/O hand surgery Bunion of great toe Family History (Updated 12/17/20 @ 09:50 by Slim Hensley MD) Maternal Grandmother Myocardial infarct Social History (Updated 04/16/23 @ 10:28 by Slim Hensley MD) Housing: House Alcohol intake: current Comment: 2-3 x a year 3 glasses Patient Tobacco Use Status: Never used Tobacco e-Cigarette/Vaping Use: Never Used Second Hand Smoke Exposure: No service: No Current occupational status: employed Cognitive needs: No Hearing needs: No Vision needs: No Review of Systems Const All systems reviewed & are unremarkable except as noted in HPI and below Physical Exam Vital Signs: Last Vital Signs Pulse 79 01/11/24 16:16 BP 126/82 01/11/24 16:16 Pulse Ox 98 01/11/24 16:16 Oxygen Delivery Method Room Air 01/11/24 16:16 BMI result Body Mass Index 37.7 Const General: cooperative, healthy appearing, comfortable and no acute distress Orientation/consciousness: patient oriented x3 Limitations: no limitations HEENT Head: Yes normal to inspection Ears: hearing grossly normal bilaterally and external ears normal General nose exam: Normal external nose present, Normal nares present and No nasal discharge present Face and sinus: Yes normal facial exam Eyes General: appearance normal, both eyes and all related structures Neck Neck: Yes normal visual inspection Resp Effort & Inspection: normal respiratory effort, able to speak in complete sentences, Actively coughing Quality: actively coughing, no respiratory distress, not tachypneic, no tripod positioning and no use of accessory muscles Auscultation: wheezes scattered wheezes and bronchovesicular breath sounds diffuse Cardio Rate: regular rate Rhythm: regular rhythm Heart sounds: normal S1 and S2 Skin General skin exam: no rashes or lesions noted Neuro General: patient oriented x3 Extrem General: Yes normal to inspection and Yes no clubbing, cyanosis or edema Assessment & Plan Assessment & Plan (1) Lower respiratory infection (e.g., bronchitis, pneumonia, pneumonitis, pulmonitis): Code(s): J22 - Unspecified acute lower respiratory infection Plan: Vital signs are stable, patient well-appearing however her lung sounds or dramatically worse than they worry a week ago. Bronchovesicular with wheezes and dim. We will send an inhaler and a burst of prednisone to patient's pharmacy. Recommended she finished taking the antibiotic course she was placed on by the emergency department. Plan See above Medications: New albuterol sulfate 90 mcg/actuation (Ventolin HFA) 2 puffs inhalation Q4-6H PRN 8.5 grams 0RF shortness of breath or wheezing prednisone 40 mg (2 x 20 mg) PO DAILY 10 tabs 0RF Coding Level of Care Code Est Pt Level 3 (72538) Diagnoses Lower respiratory infection (e.g., bronchitis, pneumonia, pneumonitis, pulmonitis) J22
[2024-01-11 16:16] VITALS: BP 126/82; PULSE 79; O2SAT 98; BMI 37.7
== END ==
PROVIDERS: PCP Internal Medicine; Visit Provider Physician Assistant
DX: J22 Unspecified acute lower respiratory infection (principal)

== ENCOUNTER 2024-01-21 14:47 | Outpatient (AMB) | payer OTHER, SELFPAY ==
--- NOTE | 2024-01-21 14:51 | MHC.PC.OV ---
Vital Signs 01/21/24 14:52 Height 5 ft 2 in Weight 203 lb 0.6 oz BMI 37.1 BP 110/70 Blood Pressure Location Lt brachial Position Sitting Pulse 92 Pulse Source Pulse Oximeter Pulse Oximetry (%) 97 Oxygen Delivery Method Room Air Intake Visit Reasons: follow up pneumonia Allergies phentermine Adverse Reaction (Intermediate, Verified 01/21/24 14:53) Headache Medication List - Last Reconciled 01/21/24 by Hanh Horner PA-C albuterol sulfate 90 mcg/actuation (Ventolin HFA) 2 puffs inhalation Q4-6H PRN Tobacco use date assessed: 04/16/23 Dental Screening Dental Screen Date: 04/16/23 HPI follow up pneumonia HPI Details 33-year-old obese female with past medical history of anemia last seen by Dr. Hensley March 2023 coming in for follow up.? In review of the notes, patient was seen in walk-in clinic 01/11/2024 4 rash on right forearm and continued cough and shortness of breath.? She had been seen in the emergency room and was being treated with amoxicillin. On exam patient found to have wheezing with diminished lung sounds and prescription sent for inhaler with prednisone burst and recommended to continue antibiotic therapy. 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 Her symptoms have greatly improved since antibiotic treatment. Before treatment she was having headache, fever, body aches and chills along with a cough which has all resolved. She does continue to have a residual productive cough and we will occasionally have coughing fits. In general she feels much better. [facility] Medical History Gestational diabetes Generalized anxiety disorder Obesity (BMI 30.0-34.9) Constipation Vitamin D deficiency Surgical History H/O tubal ligation [place] teeth removed H/O hand surgery Bunion of great toe Family History Maternal Grandmother Myocardial infarct Social History Housing: House Alcohol intake: current Comment: 2-3 x a year 3 glasses Patient Tobacco Use Status: Never used Tobacco e-Cigarette/Vaping Use: Never Used Second Hand Smoke Exposure: No service: No Current occupational status: employed Cognitive needs: No Hearing needs: No Vision needs: No Questionnaire Thrive Questionnaire Date Thrive assessed: 04/16/23 AUDIT C Alcohol Use Questionnaire (AUDIT-C) 1. How often do you have a drink containing alcohol?: Monthly or less 2. How many drinks containing alcohol do you have on a typical day when you are drinking?: 1 or 2 3. How often do you have six or more drinks on one occasion?: Never Total Score: 1 RUBY-7 AMB Questionnaire RUBY-7 Date RUBY - 7 assessed: 04/16/23 Source: Developed by Drs. Tuan Vargas, Rosalie Kenyon, Bal Bauer and colleagues, with an educational idalia from [email or web address]. Review of Systems Const Denies body aches, Denies chills, Denies fever(s), Denies headache(s) and Denies poor appetite Eyes Reports no additional complaints ENT Denies headache(s) Card Denies chest pain, Denies dyspnea and Reports dyspnea on exertion Resp Reports cough, Denies hemoptysis, Denies excessive phlegm production, Denies dyspnea and Reports dyspnea on exertion GI Denies nausea and Denies vomiting Reports no additional complaints Musc Reports no additional complaints and Denies abnormal gait Skin/Breast Details: Rash resolved Reports system reviewed and no additional complaints, except as documented Neuro Denies abnormal gait and Denies headache(s) Psych Reports no additional complaints Physical exam (Primary Care) Tobacco/Smoking Status: Tobacco use Status Tobacco use date assessed 04/16/23 04/16/23 09:59 Patient Tobacco Use Status Never used Tobacco 01/11/24 16:16 Tobacco use type 12/17/20 10:18 e-Cigarette/Vaping Use Never Used 04/16/23 10:28 Thrive Assessment: Date of Thrive Assessment Date Thrive assessed 04/16/23 04/16/23 09:59 Const General: cooperative, healthy appearing, comfortable and no acute distress Orientation/consciousness: patient oriented x3 HENMT Head: Yes normocephalic Ears: hearing grossly normal bilaterally General nose exam: Normal external nose present Eyes General: appearance normal, both eyes and all related structures Conjunctivae: conjunctivae normal Neck Neck: Yes full ROM and Yes no lymphadenopathy Resp Effort & Inspection: normal respiratory effort Auscultation: clear to auscultation bilaterally, no crackles, no rales, no rhonchi and no wheezes Cardio Rate: regular rate Rhythm: regular rhythm Skin Other: Small area of darkened skin in the right antecubital fossa General skin exam: no rashes or lesions noted Neuro General: patient oriented x3 Gait exam (Neuro): Normal gait present Extrem General: Yes normal to inspection, Yes full ROM and No edema Psych Affect: normal affect Attitude: cooperative Insight: Good insight present (Psych) Judgement: Good judgement present (Psych) Coding Level of Care Code Est Pt Level 3 (41437) Diagnoses Lower respiratory infection (e.g., bronchitis, pneumonia, pneumonitis, pulmonitis) J22 Obesity (BMI 30.0-34.9) E66.9 Assessment & Plan Assessment & Plan (1) Lower respiratory infection (e.g., bronchitis, pneumonia, pneumonitis, pulmonitis): Code(s): J22 - Unspecified acute lower respiratory infection Category: Medical Plan: Patient completed antibiotic course, prednisone and is still occasionally using the inhaler as needed for chest tightness. Lungs were clear on exam today. Patient requesting additional chest x-ray to ensure resolution. Advised patient we do not routinely test for cure for pneumonia and as long as symptoms are improving we do not need a chest x-ray at this time. Order was placed and advised patient if symptoms have not improved in 1 week to have the x-ray done. If symptoms worsen please reach out to the office for re-evaluation. Benzonatate sent to pharmacy for cough. Additionally may use Delsym or Mucinex [id number] for cough as needed. (2) Obesity (BMI 30.0-34.9): Code(s): E66.9 - Obesity, unspecified Category: Medical Plan: Healthy diet and regular exercise is encouraged. Plan This note was constructed using voice recognition software. While every effort has been made to ensure accuracy and central office repairer, still areas may have been included sometimes these areas may affect the content or meeting of the given symptoms. Total time spent caring for the patient today was 20 minutes. This includes time spent before the visit reviewing the chart, time spent during the visit, and time spent after the visit and documentation. Orders: Orders XR chest 2V Today R05.9 - Cough, unspecified Medications: New benzonatate 100 mg PO BID PRN 20 caps 0RF cough
[2024-01-21 14:52] VITALS: BP 110/70; PULSE 92; O2SAT 97; BMI 37.1
== END 2024-01-21 15:17 | disposition home or self-care (01) ==
LOC: HO.HMCH 14:48
PROVIDERS: PCP Internal Medicine
DX: J22 Unspecified acute lower respiratory infection (principal); E66.9 Obesity, unspecified; Z68.37 Body mass index [BMI] 37.0-37.9, adult

== ENCOUNTER → 2024-01-21 14:47 | Outpatient (BNVA) | payer OTHER, SELFPAY | PROVIDERS: PCP Internal Medicine | DX: J22 Unspecified acute lower respiratory infection (principal); E66.9 Obesity, unspecified | CPT/HCPCS: 99212 ==

== ENCOUNTER 2024-04-19 10:05 | Outpatient (AMB) | payer OTHER, SELFPAY ==
[2024-04-19 10:06] VITALS: BP 118/76; PULSE 80; O2SAT 98; BMI 38.0
--- NOTE | 2024-04-19 10:06 | MHC.PC.OV ---
Vital Signs 04/19/24 10:06 Height 5 ft 2 in Weight 208 lb BMI 38.0 BP 118/76 Blood Pressure Location Lt brachial Position Sitting Pulse 80 Pulse Source Pulse Oximeter Pulse Oximetry (%) 98 Oxygen Delivery Method Room Air Intake Visit Reasons: pe Intake Note: Requesting order for tspot Allergies phentermine Adverse Reaction (Intermediate, Verified 04/19/24 10:08) Headache Tobacco use date assessed: 04/19/24 Dental Screening Dental Screen Date: 04/19/24 Did you have a dental visit in the last 12 months?: Yes Did you have a dental problem in the last 6 months where you did not have access to dental care?: No Was dental information given to patient?: Patient has dentist HPI pe HPI Details The patient is a 33-year-old female presenting for an annual physical examination. The patient has a history of headaches attributed to phentermine, a medication used for weight loss, leading to discontinuation of its use. She has no current medications or use of [id number] supplements. The patient had gestational diabetes during a past , and there is a noted family history of myocardial infarction, specifically in the patient's grandmother. Additionally, a family history of cancer is noted, with the patient's grandmother having undergone a hysterectomy due to uterine or cervical cancer, though the specific type was not recalled by the patient. - Discussed the importance of regular exercise and a healthy diet. - Encouraged to receive flu vaccination; patient has not received the flu shot for two years. - Recommended screening blood work, including glucose and cholesterol levels and including an Interferon-Gamma Release Assay (IGRA) test for tuberculosis. - Advised increased water intake. - Emphasized hand hygiene and precautions against flu, RSV, and norovirus. - Alcohol consumption is less than once every three months, with an average of one to two drinks per occasion. - Denies tobacco use. - Denies recreational drug use. - Reports increased water intake. - Describes life stress related to work. - Engages in juicing and healthy dietary practices. - Musculoskeletal: Reports episodic swelling and pain in the right index finger, alleviated by dietary modifications. - Gastrointestinal: Reports occasional diarrhea without visible blood; describes recent instance after consuming grapes. - Cardiovascular: Denies any past episodes of syncope, palpitations, or shortness of breath. Reports feelings of chest tightness without pain. - Respiratory: Denies frequent cough. - Neurological: Reports occasional headaches related to past phentermine usage. [facility] Medical History (Updated 04/19/24 @ 10:32 by Slim Hensley MD) Obesity (BMI 30.0-34.9) Gestational diabetes Generalized anxiety disorder Constipation Vitamin D deficiency Surgical History H/O tubal ligation [place] teeth removed H/O hand surgery Bunion of great toe Family History Maternal Grandmother Myocardial infarct Social History (Updated 04/19/24 @ 10:35 by Slim Hensley MD) Housing: House Alcohol intake: current Comment: 2-3 x a year 1-2 glasses Patient Tobacco Use Status: Never used Tobacco Tobacco use type: Cigarette e-Cigarette/Vaping Use: Never Used Second Hand Smoke Exposure: No service: No Current occupational status: employed Cognitive needs: No Hearing needs: No Vision needs: No Questionnaire PHQ-9 Over the last 2 weeks, how often have you been bothered by any of the following problems? 1. Little interest or pleasure in doing things: not at all 2. Feeling down, depressed, or hopeless: not at all 3. Trouble falling or staying asleep, or sleeping too much: several days 4. Feeling tired or having little energy: several days 5. Poor appetite or overeating: several days 6. Feeling bad about yourself - or that you are a failure or have let yourself or your family down: not at all 7. Trouble concentrating on things, such as reading the newspaper or watching television: not at all 8. Moving or speaking so slowly that other people could have noticed. Or the opposite - being so fidgety or restless that you have been moving around a lot more than usual: several days 9. Thoughts that you would be better off or of hurting yourself in some way: not at all Total score: 4 Source: Developed by Drs. Tuan Vargas, Rosalie Kenyon, Bal Bauer and colleagues, with an educational idalia from [employer]. Thrive Questionnaire Date Thrive assessed: 04/19/24 I am a: Patient What is your living situation today?: I have a steady place to live Within the past 12 months, did the food you bought not last and you didn't have the money to get more?: Never true Within the past 12 months, did you worry whether your food would run out before you got money to buy more?: Never true Do you have trouble paying for medicines?: No Do you have trouble getting transportation to medical appointments?: No Do you have trouble paying your heating and electricity bill?: No Do you have trouble taking care of your child, family member or friend?: No Do you have trouble with day-to-day activities such as bathing, preparing meals, shopping, managing finances, etc.?: No Are you currently unemployed and looking for a job?: No Are you interested in more education?: Yes Please select the resources that you would like help with: None Currently or been in a relationship where the following occur: No concerns reported THRIVE Score: 0 AUDIT C Alcohol Use Questionnaire (AUDIT-C) 1. How often do you have a drink containing alcohol?: Monthly or less 2. How many drinks containing alcohol do you have on a typical day when you are drinking?: 1 or 2 3. How often do you have six or more drinks on one occasion?: Never Total Score: 1 RUBY-7 AMB Questionnaire RUBY-7 Date RUBY - 7 assessed: 04/19/24 Feeling nervous, anxious, or on edge: 1 = Several days Not being able to stop or control worryin = Several days Worrying too much about different things: 0 = Not at all Trouble relaxin = Not at all Being so restless that it is hard to sit still: 0 = Not at all Becoming easily annoyed or irritable: 1 = Several days Feeling afraid as if something awful might happen: 0 = Not at all Total RUBY-7 score (0-4 normal; 5-9 mild; 10-14 moderate; 15-21 severe): 3 Source: Developed by Drs. Tuan Vargas, Rosalie Kenyon, Bal Bauer and colleagues, with an educational idalia from [employer]. Review of Systems Const Denies poor appetite and Denies weakness Eyes Denies no additional complaints ENT Reports Normal hearing present, Denies dizziness, Denies nasal congestion, Denies tinnitus and Denies sore throat Card Denies chest pain, Denies syncope, Denies rapid heart rate and Denies dyspnea Resp Denies cough and Denies dyspnea GI Denies change in stool character, Reports constipation, Denies diarrhea, Denies nausea and Denies vomiting Denies urinary frequency, Denies difficulty voiding and Denies dysuria Neuro Reports Normal hearing present, Denies confusion, Denies dizziness, Denies syncope and Denies weakness Psych Denies confusion Physical exam (Primary Care) Vital Signs: Last Vital Signs Pulse 80 04/19/24 10:06 BP 118/76 04/19/24 10:06 Pulse Ox 98 04/19/24 10:06 Oxygen Delivery Method Room Air 04/19/24 10:06 BMI result Body Mass Index 38.0 Tobacco/Smoking Status: Tobacco use Status Tobacco use date assessed 04/19/24 04/19/24 10:17 Patient Tobacco Use Status Never used Tobacco 04/19/24 10:17 Tobacco use type Cigarette 04/19/24 10:17 e-Cigarette/Vaping Use Never Used 04/19/24 10:17 PHQ-9: PHQ-9 Score PHQ-9: Total score 4 04/19/24 10:22 Thrive Assessment: Date of Thrive Assessment Date Thrive assessed 04/19/24 04/19/24 10:17 Currently or been in a relationship where the following occur: No concerns reported Const General: No confusion Orientation/consciousness: No confusion HENMT Head: Yes normocephalic Ears: external ears normal and TM's normal bilaterally Face and sinus: Yes normal facial exam Mouth: moist mucous membranes Throat: Yes tonsils normal Eyes Conjunctivae: conjunctivae normal Pupils: Equal, round and reactive pupils present and Pupil accommodation reflex normal Direct Ophthalmoscopy: normal light reflex Neck Neck: No lymphadenopathy Thyroid: Thyroid normal Chest Chest palpation & inspection: normal inspection of the chest Resp Effort & Inspection: normal respiratory effort and no audible wheezes Auscultation: clear to auscultation bilaterally, no crackles, no wheezes and lung sounds not diminished Cardio Rate: regular rate Rhythm: regular rhythm Peripheral pulses: radial pulses present and dorsalis pedis present GI Palpation (GI): no masses Auscultation: normal bowel sounds and normoactive bowel sounds Rectal Exam - Female: deferred Skin General skin exam: no rashes or lesions noted Rashes: no rashes Neuro General: No confusion Cranial nerves: Yes Equal, round and reactive pupils present and Yes Normal hearing present Cognition (Neuro): normal cognition Gait exam (Neuro): Normal gait present Motor exam (neuro): 5/5 motor strength present throughout Deep tendon reflexes (DTR's): Right brachioradialis reflex intensity grade: 2+, Left brachioradialis reflex intensity grade: 2+, Right patellar reflex intensity grade: 2+ and Left patellar reflex intensity grade: 2+ Extrem General: No edema Coding Level of Care Code Est Pt Prev Care 18-39y(30373) Diagnoses Annual physical exam Z00.00 Obesity (BMI 30-39.9) E66.9 Assessment & Plan Assessment & Plan (1) Annual physical exam: Code(s): Z00.00 - Encounter for general adult medical examination without abnormal findings Category: Medical (2) Obesity (BMI 30-39.9): Code(s): E66.9 - Obesity, unspecified Category: Medical Plan - Order comprehensive blood analysis, including glucose level, lipid profile, and IGRA test for tuberculosis. - Monitor for recurrence of chest tightness; assess the need for further cardiac evaluation if symptoms persist or worsen. - - Scheduled follow-up pending results of blood tests and any additional concerns. - Provide lifestyle counseling on diet, exercise, and stress management. During the visit, I discussed the symptoms and potential concerns associated with the patient's episodic chest tightness. We emphasized the importance of monitoring for additional symptoms and revisiting for further evaluation if these occur. . We planned to follow up based on laboratory results, with a reminder to contact our office in the absence of a follow-up call within three days post-testing. Lifestyle counseling focused on regular physical activity, maintaining a balanced diet, managing stress, and recognizing symptom changes was also provided. - Proceed with the recommended blood testing today. - Monitor for any recurrence or intensification of chest tightness and seek medical attention if symptoms change. - - Practice stress management techniques and consider lifestyle adjustments for improved well-being. - Ensure regular handwashing to mitigate infection risk. - Wait for communication regarding lab results and follow-up as needed. Orders: Orders Complete Blood Count Auto Diff Today E66.9 - Obesity, unspecified Comprehensive Met. Panel Today E66.9 - Obesity, unspecified Free T4 (Free Thyroxine) Today E66.9 - Obesity, unspecified Thyroid Stimulating Hormone Today E66.9 - Obesity, unspecified Lipid Panel Today E66.9 - Obesity, unspecified, E78.00 - Pure hypercholesterolemia, unspecified Vitamin B12 and Folate Today E66.9 - Obesity, unspecified Vitamin D 25-OH Total Today E66.9 - Obesity, unspecified Hemoglobin A1c Today E66.9 - Obesity, unspecified T Spot TB Today Z00.00 - Encounter for general adult medical examination without abnormal findings
--- OUTSIDE RECORDS SUMMARY | 2024-04-19 10:54 | XMS_ITS | Encounter Summary ---
Author Organization [employer] Address [address] [place] [address] Care Team Providers Care Pattern Finisher Name Role Phone Unavailable Primary Care Provider Unavailabl e Encounter Details Date Type Department Care Team (Latest Contact Info) Description 10/25/2018 Abstract [facility] CONVERSIONS Dental, Provider, DDS Social History Tobacco Use Types Packs/Day Years Used Date Smoking Tobacco: Never Assessed Comments Unknown Sex and Gender Information Value Date Recorded Sex Assigned at Female 01/20/2022 10:15 AM EDT Legal Sex Female 10:15 AM EDT Gender Identity Female 01/20/2022 10:15 AM EDT Sexual Orientation Straight 01/20/2022 10 :15 AM EDT documented as of this encounter Plan of Treatment Not on file documented as of this encounter Visit Diagnoses Not on filedocumented in this encounter
--- OUTSIDE RECORDS SUMMARY | 2024-04-19 10:54 | XMS_ITS | Encounter Summary ---
Author Organization [employer] Address [address] [place] [address] Care Team Providers Care Pyroglazer Name Role Phone Unavailable Primary Care Provider Unavailabl e Encounter Details Date Type Department Care Team (Latest Contact Info) Description 10/19/2020 Abstract [facility] CONVERSIONS Dental, Provider, DDS Social History Tobacco [...]
--- OUTSIDE RECORDS SUMMARY | 2024-04-19 10:54 | XMS_ITS | Clinical Summary ---
Author Organization [employer] Address [address] [facility] [address] [place] [address] Care Team Providers Care Quality Control Checker Name Role Phone Unavailable Primary Care Provider Unavailabl e Allergies No known active allergies Medications No known medications Social History Tobacco Use Types Packs/Day Years Used Date Smoking Tobacco: Never Passive Smoke Exposure: Never Smokeless Tobacco: Never Tobacco Cessation:Counseling Given: Not Answered Alcohol Use Standard Drinks/Week Comments Yes 1 (1 standard drink = 0.6 oz pur e alcohol) Comments Unknown Sex and Gender Information Value Date Recorded Sex Assigned at Female 01/20/2022 10:15 AM EDT Legal Sex Female 10:15 AM EDT Gender Identity Female 01/20/2022 10:15 AM EDT Sexual Orientation Straight 01/20/2022 10 :15 AM EDT Last Filed Vital Signs Vital Sign Reading Time Taken Comments Blood Pressure 114/70 05/09/2022 8:55 AM EST Pulse 68 05/09/2022 8:55 AM EST Temperature - - Respiratory Rate - - Oxygen Saturation - - Inhaled Oxygen Concentration - - Weight - - Height - - Body Mass Index - - Plan of Treatment Health Maintenance Due Date Last Done Comments Dental X-Ray: Full Mouth 1989 Depression Screening 1989 HIV Screening 1989 Lipid Panel 1989 SDOH Screening 1989 Alcohol/Substance Use Screening 2001 Family Planning (PISQ) 2004 Hepatitis C Screening 07/10/2007 Pap Smear 2010 Cervical Cancer Screening 07/10/2019 HPV/Cotest 07/10/2019 Dental Oral Exam 11/07/2022 05/09/2022 Dental Prophylaxis 11/07/2022 05/09/2022 Tobacco Screening 05/09/2023 05/09/2022 Dental X-Ray: Bitewings 05/10/2023 05/09/2022 COVID-19 Vaccine ( season) 2023 01/07/2021, 12/17/2020 Influenza Vaccine (#1) 2023 3, 01/07/2021, 05/24/2019, Additional history exists DTaP/Tdap/Td Vaccines (10 - Td or Tdap) 08/07/2029 08/08/2019, 12/08/2007, 12/08/2007, Additional history exists Zoster Vaccines (1 of 2) 07/10/2039 RSV Patients and Patients Aged 60 years or older (1 - 1-dose 75+ series) 2064 IPV Vaccines Completed 05/20/1996, 01/23, 12/20/1994 Hepatitis B Vaccines Completed 11/07/2003, 02/07/2002, 01/06/2002 HPV Vaccines Completed 06/23/2007, 12/21, 10/07/2006 Meningococcal Vaccine Aged Out 12/08/2007 No damián baldo eligible based on patient's age to complete this topic HIB Vaccines Aged Out No longer eligi ble based on patient's age to complete this topic Hepatitis A Vaccines Aged Out No long er eligible based on patient's age to complete this topic Pneumococcal Vaccine: Pediatrics (0 to 5 Years) and At-Risk Patients (6 to 64 Years) Aged Out No longer eligible based on patient's age to complete this topic RSV under 20 months Aged Out No longe r eligible based on patient's age to complete this topic Rotavirus Vaccines Aged Out No longer eligible based on patient's age to complete this topic Procedures Procedure Name Priority Date/Time Associated Diagnosis Comments PERIODIC ORAL EVALUATION - ESTABLISHED PATIENT Routine 05/09/2022 10:00 AM EST PROPHYLAXIS - ADULT Routine 05/09/2022 9 :00 AM EST BITEWINGS - 4 RADIOGRAPHIC IMAGES Routine 05/09/2022 9:00 AM EST from Last 3 Months or Most Recently Relevant to Health Maintenance Insurance [place] AD[place]
== END 2024-04-19 10:51 | disposition home or self-care (01) ==
PROVIDERS: PCP Internal Medicine; Visit Provider Internal Medicine
DX: Z00.00 Encounter for general adult medical examination without abnormal findings (principal); E66.9 Obesity, unspecified; Z68.38 Body mass index [BMI] 38.0-38.9, adult

== ENCOUNTER 2024-04-19 10:05 | Outpatient (REF) | payer OTHER, SELFPAY ==
[2024-04-19 11:17] LABS: MANUAL DIFF FLAG NO
[2024-04-19 11:47] LABS: Basophils Percent Auto 0.4 % (0-2); Eosinophils Absolute Auto 0.1 X10*3/uL (0.0-0.4); Hematocrit 41.8 % (37.0-47.0); Hemoglobin 13.6 g/dl (12.0-16.0); Imm Gran Abs Auto 0.03 X10*3/uL (0.00-0.03); Imm Gran Pct Auto 0.4 % (0.0-0.4); Lymphocytes Percent Auto 25.2 % (20-40); Mean Corpuscular HGB Conc 32.5 g/dl (31.0-35.0); Mean Corpuscular Hemoglobin 28.1 pg (27.0-33.0); Mean Corpuscular Volume 86.4 fL (80.0-98.0); Mean Platelet Volume 9.6 fL (9.4-12.3); Monocytes Absolute Auto 0.5 X10*3/uL (0.1-1.2); Monocytes Percent Auto 5.9 % (2-11); Neutrophils Absolute Auto 5.3 x10*3/uL (2.0-8.3); Neutrophils Percent Auto 67.1 % (45-73); Platelet Count 270 X10*3/uL (160-400); Red Blood Count 4.84 X10*6/uL (4.20-5.50); Red Cell Distribution Width 13.7 % (11.0-16.0); White Blood Count 7.8 X10*3/uL (4.8-10.8)
[2024-04-19 11:55] LABS: Estimated Average Glucose 117 mg/dL; Hemoglobin A1C 134.5595 umol/L; Hemoglobin A1c % 5.7 % (<6.0); Total Hemoglobin (HGBA1C) 3504.6071 umol/L
--- OUTSIDE RECORDS SUMMARY | 2024-04-19 12:10 | XMS_ITS | Encounter Summary ---
Author Organization [employer] Address [address] [facility] [address] [place] [address] Care Team Providers Care Dumper Name Role Phone Unavailable Primary Care Provider Unavailabl e Encounter Details Date Type Department Care Team (Latest Contact Info) Description 10/19/2020 Abstract [facility] CONVERSIONS Dental, Provider, DDS Social History Tobacco [...]
--- OUTSIDE RECORDS SUMMARY | 2024-04-19 12:10 | XMS_ITS | Encounter Summary ---
Author Organization [employer] Address [address] [facility] [facility] [address] [place] [address] Care Team Providers Care Rn Procedures Name Role Phone Unavailable Primary Care Provider [...]
--- OUTSIDE RECORDS SUMMARY | 2024-04-19 12:10 | XMS_ITS | Clinical Summary ---
Author Organization [employer] Address [address] [facility] [address] [place] [address] Care Team Providers Care Metal Inspector Name Role Phone Unavailable Primary Care Provider [...]
[2024-04-19 12:27] LABS: Alanine Aminotransferase 20 U/L (0-31); Albumin Level 4.5 g/dL (3.5-5.0); Alkaline Phosphatase 69 U/L (39-117); Anion Gap 8 (12-20); Aspartate Amino Transferase 23 U/L (5-31); Bilirubin Total 0.5 mg/dL (0.0-1.0); Blood Urea Nitrogen 12 mg/dL (9-16); Calcium 9.4 mg/dL (8.4-10.2); Carbon Dioxide 27 mmol/L (22-29); Chloride 107 mmol/L (96-108); Cholesterol 221 mg/dL (<200); Estimated Glomerular Filt Rate > 60; Glucose Random 86 mg/dL (60-115); HDL Cholesterol 64 mg/dL (>40); LDL Cholesterol Calculated 134 mg/dL (<100); Sodium 138 mmol/L (135-145); Total Protein 8.3 g/dL (6.5-8.0); Triglycerides 118 mg/dL (<150)
[2024-04-19 12:52] LABS: Folate 15.3 ng/mL (> or = 4.0); Vitamin B12 740 pg/mL (200-900)
[2024-04-19 12:57] LABS: Free T4 (Free Thyroxine) 0.99 ng/dL (0.71-1.85); Thyroid Stimulating Hormone 1.69 uIU/mL (0.32-4.0); Vitamin D 25-OH Total 27.4 ng/mL (>30)
[2024-04-22 09:58] LABS: TS Negative Control Passed; TS Panel A 0; TS Panel B 0; TS Positive Control Passed; TSpotTB Negative (Negative)
== END 2024-04-19 10:06 | disposition home or self-care (01) ==
LOC: HO.LAB 10:05
PROVIDERS: PCP Internal Medicine; Visit Provider Internal Medicine
DX: Z00.00 Encounter for general adult medical examination without abnormal findings (principal); E78.00 Pure hypercholesterolemia, unspecified; E66.9 Obesity, unspecified; Z68.38 Body mass index [BMI] 38.0-38.9, adult
CPT/HCPCS: 36415; 80053; 80061; 82306; 82607; 82746; 83036; 84439; 84443; 85025; 86481; 96127; 99395

== ENCOUNTER 2024-09-14 13:50 | Outpatient (AMB) | payer OTHER, SELFPAY ==
--- NOTE | 2024-09-14 14:08 | MHC.PC.OV ---
Vital Signs 09/14/24 14:09 Height 5 ft 2 in Weight 208 lb 6 oz BMI 38.1 BP 128/68 Blood Pressure Location Lt brachial Position Sitting Pulse 91 Pulse Source Pulse Oximeter Temp 97.3 F Temp Source Temporal Artery Scan Pulse Oximetry (%) 98 Oxygen Delivery Method Room Air Intake Visit Reasons: [facility] 09/02 hip pain Intake Note: Patient is here to follow-up after a visit the emergency department at [facility] on 09/07/24. Certified Ophthalmic Technician Required: No Mechanical Maintenance Technician: Not Required per policy Accompanied by: Self / Same As Patient Allergies phentermine Adverse Reaction (Intermediate, Verified 09/14/24 14:09) Headache Medication List - Last Reconciled 09/14/24 by Hanh Horner PA-C No Known Home Meds Tobacco use date assessed: 09/14/24 Dental Screening Dental Screen Date: 04/19/24 HPI [facility] 09/02 hip pain HPI Details 34-year-old female with past medical history of impaired glucose tolerance, anemia, obesity, hypercholesterolemia last seen 03/2024 coming in for hospital discharge follow up. The hip pain began suddenly, with stiffness and significant pain localized to the left hip, radiating to the knee. The patient initially continued working despite the pain but sought medical evaluation when the pain became unbearable. Diagnostic imaging, including an X-ray and ultrasound, did not reveal any abnormalities such as bursitis. The patient reports improvement in pain with rest and has been off work, avoiding activities that exacerbate the pain, such as climbing stairs. Current management includes [id number] pain relief and lidocaine patches, which have been effective. [facility] Medical History Obesity (BMI 30.0-34.9) Gestational diabetes Generalized anxiety disorder Constipation Vitamin D deficiency Surgical History H/O tubal ligation [place] teeth removed H/O hand surgery Bunion of great toe Family History Maternal Grandmother Myocardial infarct Social History Housing: House Alcohol intake: current Comment: 2-3 x a year 1-2 glasses Patient Tobacco Use Status: Never used Tobacco Tobacco use type: Cigarette e-Cigarette/Vaping Use: Never Used Second Hand Smoke Exposure: No service: No Current occupational status: employed Cognitive needs: No Hearing needs: No Vision needs: No Questionnaire Thrive Questionnaire Date Thrive assessed: 04/12/24 I am a: Patient What is your living situation today?: I have a steady place to live Within the past 12 months, did the food you bought not last and you didn't have the money to get more?: Never true Within the past 12 months, did you worry whether your food would run out before you got money to buy more?: Never true Do you have trouble paying for medicines?: No Do you have trouble getting transportation to medical appointments?: No Do you have trouble paying your heating and electricity bill?: No Do you have trouble taking care of your child, family member or friend?: No Do you have trouble with day-to-day activities such as bathing, preparing meals, shopping, managing finances, etc.?: No Are you currently unemployed and looking for a job?: No Are you interested in more education?: Yes Please select the resources that you would like help with: None Currently or been in a relationship where the following occur: No concerns reported THRIVE Score: 0 RUBY-7 AMB Questionnaire RUBY-7 Date RUBY - 7 assessed: 04/19/24 Source: Developed by Drs. Tuan Vargas, Rosalie Kenyon, Bal Bauer and colleagues, with an educational idalia from [employer]. Review of Systems Const Denies body aches, Denies chills and Denies fever(s) Eyes Reports no additional complaints ENT Reports no additional complaints Card Denies chest pain, Denies syncope, Denies dyspnea and Denies dyspnea on exertion Resp Denies dyspnea and Denies dyspnea on exertion Musc Details: mild left hip pain Neuro Denies syncope Physical exam (Primary Care) Vital Signs: Last Vital Signs Temp 97.3 F 09/14/24 14:09 Pulse 91 09/14/24 14:09 BP 128/68 09/14/24 14:09 Pulse Ox 98 09/14/24 14:09 Oxygen Delivery Method Room Air 09/14/24 14:09 BMI result Body Mass Index 38.1 Tobacco/Smoking Status: Tobacco use Status Tobacco use date assessed 09/14/24 09/14/24 14:17 Patient Tobacco Use Status Never used Tobacco 09/14/24 14:17 Tobacco use type Cigarette 09/14/24 14:17 e-Cigarette/Vaping Use Never Used 09/14/24 14:17 Thrive Assessment: Date of Thrive Assessment Date Thrive assessed 04/12/24 09/14/24 14:17 Currently or been in a relationship where the following occur: No concerns reported Const General: cooperative, healthy appearing, comfortable and no acute distress Orientation/consciousness: patient oriented x3 HENMT Head: Yes normocephalic Ears: hearing grossly normal bilaterally General nose exam: Normal external nose present Eyes General: appearance normal, both eyes and all related structures Conjunctivae: conjunctivae normal Neck Neck: Yes full ROM and Yes no lymphadenopathy Resp Effort & Inspection: normal respiratory effort Cardio Rate: regular rate Rhythm: regular rhythm Back/Spine/Pelvis Other: mild tenderness to left hip Skin General skin exam: no rashes or lesions noted Neuro General: patient oriented x3 Gait exam (Neuro): Normal gait present Extrem General: Yes normal to inspection, Yes full ROM and No edema Psych Affect: normal affect Attitude: cooperative Insight: Good insight present (Psych) Judgement: Good judgement present (Psych) Coding Level of Care Code Est Pt Level 3 (00217) Diagnoses Left hip pain M25.552 Assessment & Plan Assessment & Plan (1) Left hip pain: Code(s): M25.552 - Pain in left hip Category: Medical Plan: Physical therapy is recommended to address the left hip pain, with the aim of stretching and strengthening the affected area. The patient is advised to attend one or two sessions to learn exercises that can be continued at home. [id number]-[id number] pain management options, including lidocaine patches, are suggested to alleviate discomfort during physical activity. If symptoms persist or worsen, a referral to orthopedics for potential injections may be considered. The patient is encouraged to manage weight through lifestyle modifications, given the recent weight gain attributed to her work environment. Plan This note was constructed using voice recognition software. While every effort has been made to ensure accuracy and predictive maintenance technician, still areas may have been included sometimes these areas may affect the content or meeting of the given symptoms. Total time spent caring for the patient today was 20 minutes. This includes time spent before the visit reviewing the chart, time spent during the visit, and time spent after the visit and documentation. Patient was informed and verbally consented to the use of an ambient scribe for clinic note documentation during this visit. Orders: Orders PT Evaluation and Treatment Today M25.552 - Pain in left hip
[2024-09-14 14:09] VITALS: BP 128/68; PULSE 91; TEMP 36.3; O2SAT 98; BMI 38.1
--- OUTSIDE RECORDS SUMMARY | 2024-09-14 16:31 | XMS_ITS | Continuity of Care Document ---
Author Organization [facility] Address [address] [place] [id number] Insurance Providers Payer Plan Claims Address Claims Phone Policy Number Group Number Relation Employer Guarantor Name Guarantor Guarantor Address Guarantor Phone Miriam CANALES Commu n Ann coe [id number] [phone] [id number] Self Deisy Benny [address] [place] [address] [place], [place] [id number] Problems Condition ICD9 code ICD10 code SNOMED code Start Date End Date S tatus Encounter for screening for other metabolic disorders Z13.228 Results No Results Allergies, adverse reactions, alerts No known allergies and adverse reactions Medications No administered medications reported Vital Signs No vital signs reported Social History No smoking Hx information available
== END 2024-09-14 14:43 | disposition home or self-care (01) ==
LOC: HO.HMCH 13:52
PROVIDERS: PCP Internal Medicine
DX: M25.552 Pain in left hip (principal)

== ENCOUNTER → 2024-09-14 13:50 | Outpatient (BNVA) | payer OTHER, SELFPAY | PROVIDERS: PCP Internal Medicine | DX: Z13.89 Encounter for screening for other disorder (principal) ==

== ENCOUNTER 2024-09-20 16:41 | Outpatient (REF) | payer OTHER, MEDICAID, SELFPAY ==
--- OUTSIDE RECORDS SUMMARY | 2024-09-20 16:45 | XMS_ITS | Patient Health Record ---
Author Organization [facility] Address [address] [place] [address] Care Team Providers Care Dietary Tech Name Role Phone Mouna Huerta MD Primary Care Provider Unavail able Serafin Beavers Jr Unavailable [phone] Reason For Referral No Information Medications Medication SIG (Take, Route, Frequency, Duration) Notes Start Date End Date Status Multi Vitamin/Minerals - Orally Active Social History Tobacco Use: Social History Observation Description Date Details (start date - stop date) Never Smoker NA - NA Tobacco Use/Smoking Question Answer Notes Patient is a nonsmoker Alcohol Screen Question Answer Notes Did you have a drink contain ing alcohol in the past year? Yes How often did you have a dri nk containing alcohol in the past year? Monthly or less (1 point) How many drinks did you have on a typical day when you were drinking in the past year? 1 or 2 drinks (0 point) How often did you have 6 or more drinks on one occasion in the past year? Never (0 point) Points 1 Interpretation Negative Problems Problem Type SNOMED Code ICD Code Onset Dates Problem Status W/U Status Risk Notes Problem [id number] Constipation, unspecified constipation type (K59.00) Active confirmed Plan Of Treatment No Information Insurance Providers Payer Name Payer Address Payer Phone Subscriber Number Group Number Insured Name Patient Relationship to Insured Coverage Start Date Coverage End Date [facility] [facility] [address] [address] [place], [place] [phone] [id number] MANOLO VÁZQUEZ Self - patient is the insured Medical (General) History Medical History History ICD Code Denies [place],DM,CVA,Lung disease,renal dise ase Surgical History Surgery Date(Month/Year) wisdom teeth extraction 2017 tumor removal on right hand 2016
--- OUTSIDE RECORDS SUMMARY | 2024-09-20 16:45 | XMS_ITS | Clinical Summary ---
Author Organization [employer] Address [address] [facility] [address] [place] [address] Care Team Providers Care Human Geography Instructor Name Role Phone Unavailable Primary Care Provider [...] 1989 Lipid Panel 1989 SDOH Screening 1989 Disability Screening 1989 Alcohol/Substance Use Screening 2001 Family Planning (PISQ) 2004 Hepatitis C Screening 07/10/2007 Pap Smear 2010 Cervical Cancer Screening 07/10/2019 HPV/Cotest 07/10/2019 Dental Oral Exam 11/07/2022 05/09/2022 Dental Prophylaxis 11/07/2022 05/09/2022 Tobacco Screening 05/09/2023 05/09/2022 Dental X-Ray: Bitewings 05/10/2023 05/09/2022 COVID-19 Vaccine ( season) 2023 01/07/2021, 12/17/2020 Influenza Vaccine (Season Ended) 2024 04/09/2022, 01/07/2021, 05/24/2019, Additional history exists DTaP/Tdap/Td Vaccines [...] on patient's age to complete this topic Meningococcal B Vaccine Aged Out No l onger eligible based on patient's age to complete this topic Pneumococcal Vaccine: Pediatrics (0 to 5 Years) and At-Risk Patients (6 to 49) Years Aged Out No longer eligible based on [...]
--- OUTSIDE RECORDS SUMMARY | 2024-09-20 16:45 | XMS_ITS | Continuity of Care Document ---
Author Organization [facility] Address [address] [place] [id number] Insurance Providers Payer Plan Claims Address Claims Phone Policy Number Group Number Relation Employer Guarantor Name Guarantor Guarantor Address Guarantor Phone Miriam CANALES Commu n Ann nde [id number] [phone] [id number] Self Deisy Benny [address] [place] [address] [place], [place] [id number] Problems Condition ICD9 code ICD10 code SNOMED code Start Date End Date S tatus Encounter for screening for other metabolic disorders Z13.228 Results No Results Allergies, adverse reactions, alerts No known allergies and adverse reactions Medications No administered medications reported Vital Signs No vital signs reported Social History No smoking Hx information available
--- OUTSIDE RECORDS SUMMARY | 2024-09-20 16:45 | XMS_ITS | Continuity of Care Document ---
Author Organization [facility] Address [address] [place] [address] Insurance Providers Payer Plan Claims Address Claims Phone Policy Number Group Number Relation Employer Guarantor Name Guarantor Guarantor Address Guarantor Phone Miriam CANALES Commu n Ann nhe [id number] [phone] [id number] Self Deisy Benny [address] [place] [address] [place], [place] [id number] Problems Condition ICD9 code ICD10 code SNOMED code Start Date End Date S tatus Encounter for screening for other metabolic disorders Z13.228 Results No Results Allergies, adverse reactions, alerts No known allergies and adverse reactions Medications No administered medications reported Vital Signs No vital signs reported Social History No smoking Hx information available
[2024-09-21 08:12] LABS: HBS Num1 35.23 mIU/mL (0-7.99); HBc Num1 0.09 S/CO (0.00-0.79); HBsAGNum1 0.29 S/CO (0.00-0.99); Hepatitis B Surface Antigen Negative (Negative); ~HepC Num1 0.42 S/CO (0.00-0.79); ~Hepatitis B Surface Antibody REACTIVE (Nonreactive); ~Hepatitis C Antibody Nonreactive (Nonreactive)
[2024-09-21 10:13] LABS: Rubeola IgG (Measles) >300.00 AU/mL
== END 2024-09-20 16:42 | disposition home or self-care (01) ==
LOC: HO.LAB 16:41
PROVIDERS: PCP Internal Medicine; Visit Provider Internal Medicine
DX: Z02.0 Encounter for examination for admission to educational institution (principal); E66.9 Obesity, unspecified; R79.89 Other specified abnormal findings of blood chemistry
CPT/HCPCS: 36415; 86704; 86706; 86735; 86762; 86765; 86787; 86803; 87340

== ENCOUNTER 2024-10-13 09:44 | Outpatient (REF) | payer OTHER, MEDICAID, SELFPAY ==
--- OUTSIDE RECORDS SUMMARY | 2024-10-11 03:40 | XMS_ITS | Continuity of Care Document ---
Author Organization [facility] ter Address [address] [place] [address]- Care Team Providers Care Electrician Outside Name Role Phone Po Slim HILLS Primary Care Physician Encounter [facility] NBR [id number] Date(s): 10/10/24 - 10/11/[address] [address] Discharge Disposition: A-D/C Home Attending Physician: Tasneem Zapata DO Admitting Physician: Tasneem Zapata DO Referring Physician: Tasneem Zapata DO Encounter Type: One Time OP Allergies, Adverse Reactions, Alerts No Known Allergies Medications clotrimazole 1% topical cream 1 application, Topically, Daily at bedtime, for 7 days, # 15 Gm, 0 Refills, Acute 10/18/24 3:14:00 AM EDT, 10/11/24 3:14:00 AM EDT, Cream, [facility]/pharmacy #[id number], Partial fill upon patient request if the prescription is for a schedule II opioid drug., 1 application Topically Daily at bedtime,x7 days, 158, cm, 10/10/24 22:58:00 EDT, Height, 95, kg, 09/07/24 10:08:00 EDT, Dry Weight Start Date: 10/11/24 Stop Date: 10/18/24 Status: Ordered Quantity: 15.0 Unit: g Repeat number: 1 Medrol Dosepak 4 mg oral tablet 1 pack/packet, By Mouth, Daily, for 6 days, as directed on package labeling, # 21 tablet, 5 Refills, Acute 10/13/24 11:23:00 AM EDT, 09/07/24 11:23:00 AM EDT, Tablet, [id number], Partial fill upon patient request if the prescription is for a schedule II opioid drug., 158, cm, 09/07/24 10:08:00 EDT, Height, 95, kg, 09/07/24 10:08:00 EDT, Dry Weight Start Date: 09/07/24 Stop Date: 10/13/24 Status: Ordered Quantity: 21.0 Unit: tablet Repeat number: 6 Problem List Condition Confirmation Course Effective Dates Status Health St [facility] Informant History of Gestational diabetes Confirmed Active Obese class II Confirmed Active Social History Social History Type Response Smoking Status Never (less than 100 in lifetime); Tobacco user in household: No entered on: 08/23/19 Sex Sex Representation Female (finding) Note * Amanda Scott RN: PERFORM Event Display: Discharge/Transfer Note Hospital Authored Date: [id number] Nursing Discharge Note Entered On: 10/11/2024 3:41 EDT Performed On: 10/11/2024 3:40 EDT by Amanda Scott RN Nursing Discharge Note 2 Discharge Time : 10/11/2024 3:40 EDT Discharge Level of Care at Discharge : Home/[facility] Patient Left Unit Via : Ambulatory Patient Accompanied Off Unit with : Other: alone DC Instructions Provided & Signed by Pt : Yes Patient Understands D/C Instructions : Yes Patient Instructions Discharge Signed : Yes Did Pt have Specialty Bed or Wound Vac : No Amanda Scott RN - 10/11/2024 3:40 EDT * Event Display: Discharge/Transfer Note Hospital Authored Date: * Amanda Scott RN: PERFORM Event Display: Patient Education/Instruction Authored Date: [id number] Inpatient Adult Discharge Instructions. [address] [address] Name: MANOLO KATHIE : 1990?? Visit: 10/10/2024 22:38?? Current Date: 10/11/2024 03:31 ?? Account: [id number]?? Inpatient Adult Discharge Instructions We would like to thank you for allowing us to assist you with your healthcare needs. The following includes patient education materials and information regarding your injury/illness. Our entire staffstrives to provide an excellent experience for our patients and their families. PLEASE ENSURE YOU FOLLOW-UP PER THE INSTRUCTIONS BELOW! ?? YOUR OPINION IS IMPORTANT TO US! Please complete the survey you may receive by mail or email. Your feedback will be used to make improvements to the healthcare experiences of our patients and their families. Surveys are administered by [employer] ?? If further treatment with your primary care physician or another doctor is recommended, it is important for you to keep the appointment. Call your primary care physician or return to the Emergency Department immediately if your condition worsens, fails to improve, or new symptoms develop. If you need to find a doctor, you can call [facility] Link for a referral at [phone] or toll free at [phone] ([phone]) or log in to [email or web address].. ?? [facility], in keeping with [facility] guidance, no longer requires face masks for staff, patientsor visitors in most situations. Similiar to time spent indoors at other locations, there is the chance that you were exposed to repiratory viruses during your time with us (such as flu or COVID-19). If you develop symptoms concerning for a viral respiratory infection, please seek testing (and treatment if indicated) from your medical provider or home test kit. ?? You can view and manage your care through the patient portal or by using a health care nadeen of your choosing. [employer] is a website that allows you to securely view your medical information including your hospital discharge summary, office visit summaries, medications and follow-up visits. You can also request appointments, renew medications, and request access to your medical information using a health care nadeen of your choosing, or just ask a question. You are entitled to know the individuals who participated in your treatment. This information is available within your medical record and will be provided upon your request. You can enroll at [email or web address] or register d uring your next office visit. You have been discharged from [facility], Patient Care Unit: [id number]??. If you have any questions regarding these instructions, including results of studies pending, afteryou leave, please call us and we will be happy to assist you 13/10. [facility] Your Care Team Attending Physician Tasneem Zapata DO?? Consulting Providers Tasneem Zapata DO?? Your Diagnosis Bartholin cyst Tests Performed Below is a partial list of the tests performed during your hospitalization. You may have had other tests and procedures not included in this list. Please discuss all test results with your provider. No tests performed during this visit.?? Primary Care Provider Slim Hensley MD? Advance Directive Health Care Proxy on File Yes - Health Care Proxy Patient has a Designated Caregiver: No Discharge Vitals Temperature: 98.2 DegF Height: 158 cm Pulse Rate:??98 bpm??High Weight: 94.9 kg Respiratory Rate: 16 br/min Body Mass Index:??38.01 kg/m2??Critical Systolic Blood Pressure: 136 mm Hg ?? Diastolic Blood Pressure: 84 mm Hg ?? Oxygen Saturation: 100 % ?? Studies Pending All studies ordered during this hospital stay have been completed unless listed below. Please discuss all pending results with your provider listed above in these instructions. ?? No incomplete studies found?? What to do next Instructions From Your Doctor ?? Orders?? Scheduled Follow-Up Appointments Thursday 8:00 AM EDT ?? Where: [facility] [address] [place] [address]- Status: Pending Thursday 4:20 PM EDT ?? With: Juany Collier DO Where: [facility] [address] [place] [address]- Status: Pending Thursday 3:30 PM EDT ?? Where: [facility] [address], [address] [place] [address]- Status: Pending Thursday 1:00 PM EDT ?? With: Vika Salmon NP Where: [facility] [address] [place] [address]- Status: Pending You Need to Schedule the Following Appointments Follow Up with[facility] [phone] Why: as scheduled Discharge Medications MANOLO VÁZQUEZ :1990 Visit Date:10/10/2024 Medications: Please continue your medications until treatment is completed or stopped by your provider. Medications not listed below should be discontinued. Discuss any questions related to medications with your provider. What How Much When Instructions Next Dose New Clotrimazole Topical (clotrimazole 1% topical cream) 1 nadeen Topically Daily at Bedtime Duration: 7 Days Pickup at [facility]/pharmacy #[id number] Unchanged MethylPREDNISolone (Medrol Dosepak 4 mg oral tablet) 1 pack/packet Oral Daily Duration: 6 Days as directed on package labeling ?? Pharmacy Information [facility]/pharmacy #[id number]: [address], [place] [phone] Prescription Given During Visit Clotrimazole Topical (clotrimazole 1% topical cream) - 1 application, Topically, Daily at bedtime, # 15 Gm, 0 Refills, [facility]/pharmacy #[id number], [address] [place] [phone]?? Laboratory Results Below is a partial list of the most recent Laboratory test results done prior to this discharge. You may have had other tests and procedures not included in this list. Please discuss all test resultswith your provider. Allergies (NKA means No Known Allergies) NKA Problems Active Problems??(2) History of Gestational diabetes?? Obese class II?? Education Materials Below is the list of Educational Leaflet Providered with your Discharge Instructions. [employer] Patient Education - Clotrimazole Topical?? [employer] Patient Education - Understanding Bartholin Cyst and Abscess?? [employer] Patient Education - Bartholin???s??Cyst (No Infection)?? [employer] Patient Education - Bartholin???s Cyst: Common Treatments?? Valuables and Belongings I fully understand and agree that [facility] accepts no responsibility for all my personal property including clothing, toilet articles, radios, jewelry, dentures, hearing aids, rings, money, or any other property that is in my possession or is brought to me after admission. I understand certain valuables may be placed in a hospital safe for a short period of time. I understand that the hospital is not liable for loss or damage due to accident, fire, or other natural occurrence while said property is in the safe. I accept full responsibility for any personal property that I keep with me, and will not hold the hospital responsible in case of loss or disappearance. I acknowledge that i have been encouraged to send valuables and belongings home. ? Other Discharge Information ? Pulmonary Rehab Status?? Pulmonary Rehab Discharge Status?? Respiratory Rate: 16 br/min ? Common Emergency Awareness Tips IS IT A STROKE? Act FAST and Check for these signs: FACE Does the face look uneven? ARM Does one arm drift down? SPEECH Does their speech sound strange? TIME Call at any sign of stroke ?? Heart Attack Signs Chest discomfort: Most heart attacks involve discomfort in the center of the chest and lasts more than a few minutes, or goes away and comes back. It can feel like uncomfortable pressure, squeezing, fullness or pain. Discomfort in upper body: Symptoms can include pain or discomfort in one or both arms, back, neck, jaw or stomach. Shortness of breath: With or without discomfort. Other signs: Breaking out in a cold sweat, nausea, or lightheaded. Remember, MINUTES DO MATTER. If you experience any of these heart attack warning signs, call to get immediate medical attention! ?? Smoking can increase your chances of developing chronic health problems and can cause harmful effects to other family members in your house. If you smoke, you are strongly encouraged to quit. Please call [facility] Link at [phone] or [phone] ([phone]) or log in to [email or web address] for referrals to smoking cessation programs. ?? 768 Suicide & Crisis Lifeline is available 13/10 if you or someone you know needs to find a reason to keep living. By calling 295 you'll be connected to a skilled, trained counselor at a crisis center in your area. INPATIENT DISCHARGE INSTRUCTIONS SIGNATURE PAGE VÁZQUEZ MANOLO Location:[facility] Registration Date and Time:10/10/2024 22:38 EDT Primary Care Physician: Slim Hensley MD, Attending Physician: Tasneem Zapata DO, MANOLO WARD, have received the above patient education materials/instructions and have verbalized understanding. If ambulance or transport services are being used I further acknowledge being given a choice of service. ?? If you need to contact me, please call me at this number: . Patient/Lift Electrician Name: Patient/Lift Electrician Signature: Relationship to Patient: Witness Name/Signature: Date: * Amanda Scott RN: PERFORM Event Display: Patient Education Leaflets Authored Date: [id number] Clotrimazole Topical ?? [id number] Clotrimazole Topical WHY is this medicine prescribed? Topical clotrimazole is used to treat tinea corporis (ringworm; fungal skin infection that causes ared scaly rash on different parts of the body), tinea cruris (jock itch; fungal infection of the skin in the groin or buttocks), and tinea pedis (athlete's foot; fungal infection of the skin on the feet and between the toes). Clotrimazole is in a class of antifungal medications called imidazoles. It works by stopping the growth of fungi that cause infection. HOW should this medicine be used? Topical clotrimazole comes as a cream and liquid to apply to the skin. It is usually applied twice a day (morning and night). Follow the directions on the package label carefully, and ask your doctoror pharmacist to explain any part you do not understand. Use clotrimazole exactly as directed. Do not use more or less of it or use it more often than directed on the package or as directed by your doctor. Topical clotrimazole is only for use on the skin. Do not let clotrimazole get into your eyes and donot swallow the medication. Clotrimazole does not work on the scalp or nails. If you are using clotrimazole to treat jock itch, your symptoms should improve over 2 weeks of treatment. If you are using clotrimazole to treat athlete's foot or ringworm, your symptoms should improve over 4 weeks of treatment. Call your doctor if your symptoms do not improve during this time or if your symptoms get worse at any time during your treatment. To use topical clotrimazole, wash the affected area and dry thoroughly. Then apply a small amount of cream or liquid to cover the affected area of skin with a thin layer. If you are treating athlete's foot, pay special attention to the spaces between the toes when applying clotrimazole. Also, be sure to wear well-fitting shoes that allow for air circulation, and change shoes and socks at least once a day. If you are using the liquid, do not apply it to any severely cracked or irritated areas. Are there OTHER USES for this medicine? Topical clotrimazole may be used to treat tinea versicolor (fungal infection of the skin that causes brown or light colored spots on the chest, back, arms, legs, or neck) or yeast infections of the skin. Talk to your doctor about the risks of using this medication for your condition. This medication may be prescribed for other uses; ask your doctor or pharmacist for more information. What SPECIAL PRECAUTIONS should I follow? Before using topical clotrimazole, ??? tell your doctor and pharmacist if you are allergic to clotrimazole, any other medications, or any of the ingredients in clotrimazole cream or liquid. Ask your pharmacist for a list of the ingredients. ??? tell your doctor and pharmacist what prescription and nonprescription medications, vitamins, nutritional supplements, and herbal products you are taking or plan to take. ??? tell your doctor if you are , plan to become , or are . If you become while using clotrimazole, call your doctor. What SPECIAL DIETARY instructions should I follow? Unless your doctor tells you otherwise, continue your normal diet. What should I do IF I FORGET to take a dose? Apply the missed dose as soon as you remember it. However, if it is almost time for the next dose, skip the missed dose and continue your regular dosing schedule. Do not apply a double amount to makeup for a missed dose. What SIDE EFFECTS can this medicine cause? Clotrimazole may cause side effects. If you experience any of these symptoms, stop using clotrimazole and call your doctor: ??? blistering, redness, swelling, itching, burning, stinging, peeling, hives, or skin cracks Clotrimazole may cause other side effects. Call your doctor if you have any unusual problems while using this medication. If you experience a serious side effect, you or your doctor may send a report to the Food and Drug Administration's (FDA) MedWatch Adverse Event Reporting program online (https://www.fda.gov/Safety/MedWatch) or by phone ( ). What should I know about STORAGE and DISPOSAL of this medication? Keep this medication in the container it came in, tightly closed, and out of reach of children. Store it at room temperature and away from excess heat and moisture (not in the bathroom). Keep all medication out of sight and reach of children as many containers are not child-resistant. Always lock safety caps. Place the medication in a safe location ??? one that is up and away and outof their sight and reach. https://www.[employer].org Dispose of unneeded medications in a way so that pets, children, and other people cannot take them.Do not flush this medication down the toilet. Use a medicine take-back program. Talk to your pharmacist about take-back programs in your community. Visit the FDA's Safe Disposal of Medicines website h ttps://goo.gl/c4Rm4p for more information. What should I do in case of OVERDOSE? If someone swallows clotrimazole topical, call your local poison control center at . If the victim has collapsed or is not breathing, call local emergency services at 911. What OTHER INFORMATION should I know? Keep all appointments with your doctor. Ask your pharmacist any questions you have about clotrimazole. Keep a written list of all of the prescription and nonprescription (zeij-cqp-zdfzile) medicines, vitamins, minerals, and dietary supplements you are taking. Bring this list with you each time you visit a doctor or if you are admitted to the hospital. You should carry the list with you in case of tony rgencies. Brand Name(s): ??? Lotrimin?? AF Athlete's Foot Cream ??? Lotrimin?? AF Jock Itch Cream ??? Lotrimin?? AF Ringworm Cream ??? Lotrimin?? Solution? Lotrisone?? Cream (as a combination product containing Betamethasone, Clotrimazole) ??? Lotrisone?? Lotion (as a combination product containing Betam ethasone, Clotrimazole) also available generically ? This branded product is no longer on the market. Generic alternatives may be available. ?? This report on medications is for your information only, and is not considered individual patient advice. Because of the changing nature of drug information, please consult your physician or pharmacist about specific clinical use. The [employer] represents that the information provided hereunder was formulated with a reasonable standard of care, and in conformity with professional standards in the field. The [employer] makes no representations or warranties, express or implied, including, but not limited to, any implied warranty of merchantability and/or fitness for a particular purpose, with respect to such information and specifically disclaims all such warranties. Users are advised that decisions regarding drug therapy are complex medical decisions requiring the independent, informed decision of an appropriate health care management coordinator, and the information is provided for informational purposes only. The entire monograph for a drug should be reviewed for a thorough understanding of the drug's actions, uses and side effects. The [employer] does not endorse or recommend the use of any drug.The information is not a substitute for medical care. AHFS?? Patient Medication Information???. ?? Copyright, 2023. The [employer]??, [address], [address], [place], [place]. All Rights Reserved. Duplication for commercial use must be authorized by [facility]. Selected Revisions: February 04, 2018. AHFS?? Patient Medication Information???. ?? Copyright, 2024 ?? * Sonia COLE, Amanda Dorsey: PERFORM Event Display: Patient Education Leaflets Authored Date: [id number] Understanding Bartholin Cyst and Abscess ?? [id number] Understanding Bartholin Cyst and Abscess A woman has two Bartholin glands. They are located on the sides of the vaginal opening. These pea-sized glands make mucus. This mucus lubricates the outside part of the vagina (vulva). If a tube (duct) in one of these glands becomes blocked, it can cause a cyst or abscess. What causes a Bartholin cyst or abscess? A cyst can form when the duct of a Bartholin gland becomes blocked. The mucus can???t come out of the gland. It builds up. If the cyst becomes infected, it may turn into an abscess. A blockage in the gland can occur from an injury or an infection, such as a sexually transmitted infection (STI). ?? Symptoms of a Bartholin cyst or abscess A Bartholin cyst starts as a small bump. It may cause no other symptoms. Or it may grow bigger. It can then cause swelling and pain. If an abscess forms, it can be very painful. You may have a fever.You may have trouble walking, sitting, or having sex. ?? Treatment for a Bartholin cyst or abscess A cyst that doesn???t cause any symptoms may not need to be treated. It may go away on its own. Butif you feel discomfort or pain, treatment options include: ??? Medicine. Fair-rsl-jyrerod pain medicines can help. In some cases, you may need antibiotics if an infection is severe, or a cyst or abscess comes back. ??? Sitz bath. Soaking the genital area in warm water can ease pain and sometimes help the cyst to drain on its own. ??? Drainage. Cutting open the cyst allows the fluid inside it to drain. This eases discomfort and pain. The healthcare provider may insert a tube (catheter) to help with drainage. This catheter may need to stay in place for up to 3 weeks. ??? Surgery. You may need to have the Bartholin glands removed if other treatments don???t work. ?? When to call your healthcare provider Call your healthcare provider right away if any of the following occur: ??? Fever of 100.4??F (38??C) or higher, or as directed by your healthcare provider ??? Redness, swelling, or fluid leaking from the cyst that gets worse ??? Pain that gets worse ??? Symptoms that don???t get better, or get worse ??? New symptoms ?? Last Reviewed Date: 2022 00:00:00 ?? 1966-8225 [employer]. All rights reserved. This information is not intended as a substitute for professional medical care. Always follow your healthcare professional's instructions. ?? * Sonia COLE, Amanda T: PERFORM Event Display: Patient Education Leaflets Authored Date: [id number] Bartholin???s??Cyst (No Infection) ?? [id number] Bartholin???s??Cyst (No Infection) The Bartholin???s glands are very small glands found inside the vaginal lips (labia). The Bartholin???s glands are very small glands found inside the vaginal lips (labia). The glands make fluid to help keep the vagina moist. When the opening of a Bartholin???s gland becomes blocked, the gland may swell and form a cyst.??The cyst may vary in size from small to large (1 to 3 cm).??It may feel like a firm lump in the labia. Treatment depends on the size of the cyst, if it causes symptoms, and if it???s infected. Small or uninfected cysts generally don???t need treatment.??Large cysts and those that are painful or infected will likely need to be treated. In these cases, the cyst may need to be opened with a cut (incision) and then drained. If you're over age 40, your healthcare provide may advise that the cyst be biopsied to rule out vulvar cancer. This means that a small piece of cyst tissue will be removed and checked under a microscope. Home care Your cyst does not need any treatment at this time. If you have some mild pain, you may be advised to take sitz baths. For this, you soak in a bath with a few inches of warm water, a few times a day,or as directed. This may help the cyst to rupture and drain in a few days.??You don't need to restrict any activities, such as sex. ?? Follow-up care Follow up with your healthcare provider, or as advised. ?? When to get medical advice Call your healthcare provider right away if any of these occur: ??? Fever of 100.4??F (38??C) or higher,??or as directed by your provider ??? Increased redness, pain, swelling, or??foul-smelling drainage??from the cyst or the area around it ??? Cyst grows larger or causes symptoms that bother you ?? Last Reviewed Date: 2023 00:00:00 ?? 5834-8047 [employer]. All rights reserved. This information is not intended as a substitute for professional medical care. Always follow your healthcare professional's instructions. ?? Patient Care team information Care Team Personnel Name: Slim Hensley MD Position: Reference Physician Member Role: PCP Address: [address] [place] [address] Telecom: Name: Amanda Scott RN Position: [facility] OB RN Member Role: Patient Care Provider Care Team Related Persons Name: MARIA ESTHER VÁZQUEZ Name: VIN OROSCO Name: ARNOLDO OROSCO Name: JED OROSCO Insurance Providers Guarantor name: MANOLO VÁZQUEZ Health Plan Information #: 1 Payer: [facility] Payer Identifier: DANNY Member Number: [id number] Group Number: [id number] Subscriber Identifier: [id number] Relationship to Subscriber: self Coverage Type: NA Coverage Verification Date: NA Telecom: NA Address: Health Plan Information #: 2 Payer: [employer] Payer Identifier: DANNY Member Number: [id number] Group Number: [id number] Subscriber Identifier: [id number] Relationship to Subscriber: self Coverage Type: MEDICAID Coverage Verification Date: DANNY Telecom: DANNY Address: NA
--- OUTSIDE RECORDS SUMMARY | 2024-10-13 10:22 | XMS_ITS | Patient Health Record ---
Author Organization [facility] Address [address] [place] [address] Care Team Providers Care Dog License Officer Supervisor Name Role Phone Mouna Huerta MD Primary Care Provider Unavail able Serafin Beavers Jr Unavailable [phone] Reason For Referral No Information Medications Medication [...] Problem Status W/U Status Risk Notes Problem [id number] Constipation, unspecified constipation type (K59.00) Active confirmed Plan Of Treatment No Information Insurance Providers Payer Name Payer Address Payer Phone Subscriber Number Group Number Insured Name Patient Relationship to Insured Coverage Start Date Coverage End Date [facility] [employer] [facility] [address] [address] [place], [place] [id number] [phone] [id number] MANOLO VÁZQUEZ Self - patient is the insured Medical (General) History Medical History History ICD Code Denies [place],DM,CVA,Lung disease,renal dise ase Surgical History Surgery Date(Month/Year) wisdom teeth extraction 2017 tumor removal on right hand 2016
--- OUTSIDE RECORDS SUMMARY | 2024-10-13 10:22 | XMS_ITS | Clinical Summary ---
Author Organization [employer] Address [address] [place] [address] Care Team Providers Care Sales Planning Analyst Name Role Phone Unavailable Primary Care Provider [...] season) 2023 01/07/2021, 12/17/2020 Influenza Vaccine (#1) 2024 3, 01/07/2021, 05/24/2019, Additional history exists DTaP/Tdap/Td [...]
[2024-10-13 10:47] LABS: Hemoglobin A1C 134.6242 umol/L; Total Hemoglobin (HGBA1C) 3394.4242 umol/L
[2024-10-13 11:12] LABS: Alanine Aminotransferase 22 U/L (0-31); Albumin Level 4.5 g/dL (3.5-5.0); Alkaline Phosphatase 77 U/L (39-117); Anion Gap 13 (12-20); Aspartate Amino Transferase 18 U/L (5-31); Blood Urea Nitrogen 9 mg/dL (9-16); Calcium 9.1 mg/dL (8.4-10.2); Carbon Dioxide 24 mmol/L (22-29); Chloride 105 mmol/L (96-108); Cholesterol 202 mg/dL (<200); Estimated Glomerular Filt Rate > 60; HDL Cholesterol 48 mg/dL (>40); Potassium 3.9 mmol/L (3.3-5.1); Sodium 138 mmol/L (135-145); Total Protein 7.6 g/dL (6.5-8.0); Triglycerides 177 mg/dL (<150)
== END 2024-10-13 09:45 | disposition home or self-care (01) ==
LOC: HO.LAB 09:44
PROVIDERS: PCP Internal Medicine; Visit Provider Internal Medicine
DX: E78.00 Pure hypercholesterolemia, unspecified (principal); R73.02 Impaired glucose tolerance (oral)
CPT/HCPCS: 36415; 80053; 80061; 83036

== ENCOUNTER 2024-11-04 11:04 | Outpatient (RCR) | payer OTHER, MEDICAID, SELFPAY ==
--- NOTE | 2024-10-17 12:24 | MHC.PT.EP ---
[facility] [place] Office [place] Office [place] Office [address] Mary Grace Chaidez [address] [phone] F: [phone] F: [phone] F: [phone] F: [phone] Physical Therapy Plan of Care Date of Evaluation: 10/17/24 Date of Surgery: Diagnosis: Pain in left hip Hanh Jamison PA-C, 09/15/24 (Pt's PCP is Dr. 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 Pt notes at work she had been sitting in short children's chairs. Pt also notes history of now resolved R sided sciatic with parathesias/back pain. Pt exhibits (+) Dheeraj test L psoas, R quadriceps, (+) lumbar instability testing, (+) weakness of R hip>L hip abductors and poor tolerance for prolonged standing/walking/sitting. During movement analysis, she was noted to prefer to rise from a half-kneel and was stronger with L LE down but notes favoring L hip when carrying her 4 y/o child. Weaker hip ext strength>abd R>L. She was unsteady in SLS and (+) valgus collapse of hip with mini squat. She exhibits hyper-lordotic posture and is noted to stand with legs hyperextended/lockout at rest. She went to ER in August for assessment of severe hip pain, had xrays (no results available at this time). She will benefit from attending from PT 2x/week x 4 weeks to address impairments, implement HEP, and restore functional mobility. She is hoping to complete skilled PT before RTW schedule on 11/08/24. Post initial evaluation she was guided through HEP program to consist of: kneeling hip flexors stretch, shown prone lying over 2 pillows with TAC, SKTC, hip ER stretch opposite knee to opposite shoulder, discussed use of lumbar support roll, prone quad stretch *(not issued for HEP). She was educated re: self massage for proximal hip flexor, educated re: benefit in ice, walking program with stretching pre/post>ice afterwards, benefit of supportive footwear sneakers vs crocs. Pt verbalized relief of back pain, hip flexor symptoms following session. Pt has high level of motivation for participation and goals. Frequency and Duration: The patient will be seen 2x/week x 4 weeks Short Term Goals: 1. Initiated self care/HEP/walking program. 2. Reduce L hip flexor sx by 25%. 3. Improve awareness of body mechanics/mobility to ease sx L hip> R L/S. 4. Strengthen core stabilizers to allow for transitional movements without catch/pain. 5. Negative lumbar instability testing. Alf Goals: 1. Strengthen hip ext 5/5 B/L. (IR: 3/5 sx L>R). 2. Strengthen hip abd to 5/5 B/L. (IR: 4+/5 compensation hip flexion in SL, sx on L.). 3. Demonstrate rise from kneeling L>R and R>L without sx >2/10 in L/S and hips. (IR: pain with rising, L hip w/ L knee down, weakness on R side with rising, heavy reliance on UE support). 4. Rise from kneeling without reliance on UE support. 5. I HEP/self-care management. 6. Negative Dheeraj test for quad/hip flexor B.L. (IR: L (+) psoas, R (+) quad). Treatment Plan: Modalities to reduce pain, spasms and effusion. Manual therapy to restore motion and function. Therapeutic exercise to improve strength and flexibility. Neuromuscular re-education for posture and balance. Therapeutic activities to return to functional activities of daily living. Electronically signed by: Aida Fajardo, PT, DPT Please sign and return to therapist. Thank you for your referral.
--- NOTE | 2024-11-10 09:12 | MHC.PT.OD ---
[facility] [place] Office [place] Office [address] [facility] Ayana Barnhart [address] [facility] [phone] F: [phone] F: [phone] F: [phone] Physical Therapy Daily Note Diagnosis: Pain in left hip Hanh Jamison PA-C, 09/15/24 (Pt's PCP is Dr. MARTIN) Date of Surgery: Date of Evaluation: 10/17/24 Date of Treatment: 11/10/24 Treatments to Date: 6 Cancellations to Date: No Shows to Date: Authorized Visits: 4 Insurance End Date: Precautions/ Contraindications: Subjective: States she will be going back to work on Thursday (will not have time for PT). Doing well with respect to symptoms. Pain Score and Location: Objective Flowsheet: Tests & Measures see eval/assessment Exercises Seated Nustep to L/S x 10 minutes for warm-up SL clamshells x 2 sets 10R shown option as well with knee extended x 2 sets 10R, standing shoulder extension/rows/chest press x 2 sets 10R with BTB around thigh with RTB. Pt expressing she is doing better overall. Positioned L SL for STM/ IASTM/flexbar roller to R lateral hip #9/#4/ strumming IASTM s education for self care/mobilization Pt verbalized reduction in sx post, supine with ice wrapped around posterior L hip and anterior L hip flexor region x 10 minutes Modalities Assessment: 11/10/24: Pt called on the phone to inquire about a work note modification. 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 During her course of PT we discussed work modification such as using a taller/adult size chair vs her sitting in a small child chair to ease her hip symptoms. We discussed the benefit of using a kneeling pad when working on the floor to ease her knee/hip pain. She was encouraged to call her PCP Dr. Martin to discuss obtaining a note to help her employer understand/support the need for these recommendations. She has completed PT at this time and verbalized understanding/education for her HEP. PT Plan: Assess response to lumbar stabilization, Has interest in physioball program- could add posterior core strength/stab with ball or progress to CK as able. Short Term Goals: 1. Initiated self care/HEP/walking program. 2. Reduce L hip flexor sx by 25%. 3. Improve awareness of body mechanics/mobility to ease sx L hip> R L/S. 4. Strengthen core stabilizers to allow for transitional movements without catch/pain. 5. Negative lumbar instability testing. Senior Living Goals: 1. Strengthen hip ext 5/5 B/L. (IR: 3/5 sx L>R). 2. Strengthen hip abd to 5/5 B/L. (IR: 4+/5 compensation hip flexion in SL, sx on L.). 3. Demonstrate rise from kneeling L>R and R>L without sx >2/10 in L/S and hips. (IR: pain with rising, L hip w/ L knee down, weakness on R side with rising, heavy reliance on UE support). 4. Rise from kneeling without reliance on UE support. 5. I HEP/self-care management. 6. Negative Dheeraj test for quad/hip flexor B.L. (IR: L (+) psoas, R (+) quad). Electronically signed by: Aida Fajardo, PT, DPT
== END 2024-12-15 15:18 | disposition home or self-care (01) ==
LOC: HO.PTS 11:04
PROVIDERS: PCP Internal Medicine
DX: M25.552 Pain in left hip (principal)
CPT/HCPCS: 97110; 97140; 97161; 97535